=== PATIENT | male | born 1930 | race Caucasian/White ===

== ENCOUNTER 2016-07-01 15:13 | Inpatient (IN) | payer MEDICARE ==
--- NOTE | 2016-07-01 15:44 | ED Physician Chart ---
Chief Complaint/HPI - Patient Information Date Seen:: 07/01/16 Time Seen:: 15:16 Chief Complaint:: Poor oral intake/failure to thrive. History of Present Illness:: Brought in by ambulance from nursing facility for the above reason. Pt is here for evaluation and consideration for gastrostomy tube placement. H & P are limited because pt is not fully cooperative. Info is primarily from review of limited transfer documents. Allergies:: Allergies Allergy/AdvReac Type Severity Reaction Status Date / Time No Known Allergies Allergy Verified 07/01/16 15:29 Vitals:: Vital Signs - 8 hr 07/01/16 15:29 Temp 98.1 F HR 88 RR 17 BP 95/65 O2 Sat % 95 Historian:: Medical Records (from transferring facility.) Family MD/PCP:: Dr. Peng LMP:: N/A Review:: Nurse's Note Reviewed, Transfer documents Reviewed Review of Systems - Review of Systems General/Constitutional: Other (Pt does not cooperate for ROS.) Past Medical History - Past Medical History Past Medical History: HTN, CAD, Asthma/COPD, Arthritis, Dementia, Other (BPH, chronic anemia.) Family History: Other (Pt does not cooperate to provide info on FHx.) Social History: Care Facility, Other (Pt does not cooperate to provide info on SHx.) Employment:: Retired. Surgical History: other (L hip surgery related to L femoral head fx.) Psychiatricy History: Dementia Medication: Reviewed Family Medical History - Family Member Mother Ethnicity: Living Status: Physical Exam - Physical Examination General/Constitutional: Awake, Alert, No distress, Non-toxic appearing Other Gen/Cons comments:: WD cachetic elderly male in NAD. Breathes comfortably, speaks clearly, but is not cooperative. Head: Atraumatic Eyes: Lids, conjuctiva normal, PERRL, EOMI Skin: No lymphadenopathy Other Skin comments:: Good color with slight decrease in turgor. Decubitus ulcers noticed in mid back without signs of infection. See pictures in Nurse Note. ENMT: External ears, nose nl, Nasal exam nl, Oropharynx nl, Tonsils nl Other ENMT comments:: Mucous membrane is slightly dry. Neck: Nontender, Full ROM w/o pain, No JVD, No nuchal rigidity, No bruit, No mass, No stridor Respiratory: Nl effort/Exclusion, Clear to Auscultation, No Wheeze/Rhonchi/Rales Cardio Vascular: RRR, No murmur, gallop, rubs GI: No tenderness/rebounding/guarding, No organomegaly, No hernia, Normal BS's, Nondistended, No mass/bruits, No McBurney tenderness Other GI comments:: Abdomen is soft. : No CVA tenderness Extremities: No edema Other Neuro/Psych comments:: Alert. Spontaneous movements noticed in all 4 extremities. Pt does not cooperate for full neurological exam. Labs/Radiology/EKG Results - Lab Results Results: Laboratory Tests 07/01/16 07/01/16 07/01/16 15:40 15:50 15:50 WBC 14.9 H RBC 3.19 L Hgb 10.5 L Hct 31.0 L MCV 97.2 MCH 33.0 H MCHC Differential 34.0 RDW 14.7 Plt Count 318 MPV 7.7 Neutrophils (Manual) 82 H Lymphocytes 12 L Monocytes 6 Platelet Estimate ADEQUATE Platelet Morphology NORMAL RBC Morph Micro Appear NORMAL PT 14.1 H INR 1.34 PTT (Actin FS) 35.7 Sodium Potassium Chloride Carbon Dioxide Anion Gap BUN Creatinine Est GFR ( Amer) Est GFR (Non-Af Amer) BUN/Creatinine Ratio Glucose Calcium Total Bilirubin AST ALT Alkaline Phosphatase Total Protein Albumin Globulin Albumin/Globulin Ratio Urine Source CATH Urine Color YELLOW Urine Clarity HAZY Urine pH 8.5 Ur Specific [place] 1.015 Urine Protein >300 H Urine Glucose (UA) NEGATIVE Urine Ketones NEGATIVE Urine Blood MODERATE H Urine Nitrate NEGATIVE Urine Bilirubin NEGATIVE Urine Urobilinogen 1.0 Ur Leukocyte Esterase TRACE H Urine RBC >100 H Urine WBC 6-10 H Ur Epithelial Cells FEW Calcium Oxalate Crystal FEW Urine Bacteria FEW 07/01/16 15:50 WBC RBC Hgb Hct MCV MCH MCHC Differential RDW Plt Count MPV Neutrophils (Manual) Lymphocytes Monocytes Platelet Estimate Platelet Morphology RBC Morph Micro Appear PT INR PTT (Actin FS) Sodium 130 L Potassium 4.4 Chloride 107 Carbon Dioxide 24.6 Anion Gap 2.8 L BUN 29 H Creatinine 0.5 L Est GFR ( Amer) TNP Est GFR (Non-Af Amer) TNP BUN/Creatinine Ratio 58.0 Glucose 96 Calcium 8.1 L Total Bilirubin 0.5 AST 25 ALT 13 Alkaline Phosphatase 92 Total Protein 5.6 L Albumin 2.6 L Globulin 3.0 Albumin/Globulin Ratio 0.9 L Urine Source Urine Color Urine Clarity Urine pH Ur Specific [place] Urine Protein Urine Glucose (UA) Urine Ketones Urine Blood Urine Nitrate Urine Bilirubin Urine Urobilinogen Ur Leukocyte Esterase Urine RBC Urine WBC Ur Epithelial Cells Calcium Oxalate Crystal Urine Bacteria - Radiology Results Results: PCXR: Based on my interpretation, poor inspiration, suboptimal study. No definite acute disease. Official report is pending. ED Septic Shock - . Is Septic Shock (SBP<90, OR Lactate>4 mmol\L) present?: No - <6hrs of presentation: Vital Signs: Vital Signs - 8 hr 07/01/16 15:29 Temp 98.1 F HR 88 RR 17 BP 95/65 O2 Sat % 95 Reassessment (Disposition) - Reassessment Reassessment:: 1804 Pt has been repeatedly evaluated. Pt remains stable. No new findings. CXR and remaining lab results just became available. Dr. Limon is to be contacted. 1922 Pt was given Dilaudid 0.5 mg IVP for his chronic pain. Pt did not tolerate oral medication and Toradol is not to be given because of his renal insufficiency. Pt's BP decreased slightly. Pt is thus given normal saline 500 ml IV bolus. 1939 Pt's condition improved and is stable BP 100/60. Pt is comfortable. No new findings. 2027 Pt was discussed with Dr. Limon with pertinent H & P, CXR and lab findings reviewed. Pt is to be admitted to [facility] under his care. Reassessment Condition:: Improved - Diagnosis Diagnosis:: Failure to thrive with hypoalbuminemia. Renal insufficiency with dehydration. Stable. Chronic anemia. Stable ? recent h/o pneumonia, on antibiotic therapy. Stable. 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 Stable. - Patient Disposition Admitted to:: Telemetry Admitting Medical Physician:: Renato Limon Time:: 20:30 Condition at Disposition:: Stable, Improved
[2016-07-01] MEDS ORDERED: Sodium Chloride 0.9% 1,000 ML IV ONE (15:45)
[2016-07-01 16:06] LABS: HEMOGLOBIN 10.5 gm/dL (12.6-17.4); MEAN CELL VOLUME 97.2 fl (80-99); MEAN PLATELET VOLUME 7.7 fl; PLATELET COUNT 318 Th/cmm (150-400); RED BLOOD COUNT 3.19 Mil/cmm (3.80-5.80); RED CELL DISTRIBUTION WIDTH 14.7 % (11.5-20.0)
[2016-07-01 16:08] LABS: WHITE BLOOD COUNT 14.9 Th/cmm (4.8-10.8)
[2016-07-01 16:20] LABS: INR 1.34 (0.5-1.4); PROTHROMBIN TIME (TEST) 14.1 SECONDS (9.5-11.5)
[2016-07-01 16:23] LABS: ALB/GLOB RATIO 0.9 (1.0-1.8); ALKALINE PHOSPHATASE 92 U/L (34-104); ANION GAP 2.8 (7.0-16.0); BILIRUBIN,TOTAL 0.5 mg/dL (0.3-1.0); BUN - UREA NITROGEN 29 mg/dL (7-25); CALCIUM SERUM 8.1 mg/dL (8.6-10.3); CARBON DIOXIDE 24.6 mEq/L (21.0-31.0); CHLORIDE 107 mEq/L (98-107); CREATININE - SERUM 0.5 mg/dL (0.7-1.3); GLUCOSE 96 mg/dL (70-105); POTASSIUM SERUM 4.4 mEq/L (3.5-5.1); SGOT 25 U/L (13-39); SGPT/ALT 13 U/L (7-52); SODIUM SERUM 130 mEq/L (136-145)
[2016-07-01 16:48] LABS: NEUTROPHILS 82 % (40-80); PLATELET ESTIMATE ADEQUATE (NORMAL); PLATELET MORPHOLOGY NORMAL (NORMAL); TOTAL CELLS COUNTED 100
[2016-07-01 16:53] LABS: URINE BILIRUBIN NEGATIVE (NEGATIVE); URINE BLOOD MODERATE (NEGATIVE); URINE COLOR YELLOW; URINE GLUCOSE (UA) NEGATIVE (NEGATIVE); URINE KETONE NEGATIVE (NEGATIVE); URINE PH 8.5; URINE PROTEIN >300 mg/dL (NEGATIVE)
[2016-07-01 16:54] LABS: URINE BACTERIA FEW /hpf (NONE SEEN); URINE CALCIUM OXALATE CRYSTALS FEW /hpf; URINE EPITHELIAL CELLS FEW /lpf (FEW); URINE RBC >100 /hpf (0-5)
[2016-07-01] MEDS ORDERED: HYDROmorphone 1 mg/mL 1mL Syr IVP STA (18:55)
[2016-07-01] MEDS ORDERED: HYDROmorphone 1 mg/mL 1mL Syr ONE (18:56)
[2016-07-01] MEDS ORDERED: Sodium Chloride 0.9% 500 ML IV ONE (19:19)
[2016-07-01] MEDS ORDERED: cefTRIAXone 1 GM in Sodium Chloride 0.9% 50 ML IV ONE (20:47)
--- NOTE | 2016-07-01 22:06 | Admit Criteria Form ---
Admit Criteria Forms - Admit Criteria Diagnosis: ANEMIA, IRON DEFICIENCY OR UNSPECIFIED Clinical Indications for Inpatient Care (Place 'X' for any and all applicable criteria): Admission is indicated for ANY ONE of the following(1)(2)(3)(4)(5)(6)(7): [X] I. Inpatient admission required rather than observation care (Also use Anemia, Iron Deficiency or Unspecified: Observation Care guideline as appropriate) because of ANY ONE of the following: [] a) Hemodynamic instability that is severe or persistent [] b) Active bleeding that cannot be rapidly controlled [] c) CVS symptoms (i.e., dyspnea, chest pain, heart failure) that are severe or persistent [] d) Neurologic symptoms (i.e., cognitive impairment, recurrent syncope or near syncope) that are severe or persistent [] e) Cardiac arrhythmias of immediate concern [] f) Acute peripheral ischemia (e.g., pulseless, cool, mottled, or cyanotic extremity) [] g) High-risk low platelet count [] h) Acute renal failure [] i) Ongoing transfusion for blood loss (greater than 2 units) [] j) IV fluid to replace significant ongoing (eg, >24 hours) losses (> 3 L/m2 per day) [] k) Pulmonary artery catheter monitoring [] l) Supplemental oxygen or respiratory treatments for over 24 hours that are performable only in acute inpatient setting [] m) Immediate inpatient surgery [X] n) Other condition, treatment or monitoring requiring inpatient admission [] II Active massive hemorrhage [] III. Active hemolysis with rapidly progressive anemia [A](6) Extended stay beyond goal length of stay may be needed for (17)(18) []a) Diagnosed cause of anemia requiring longer hospitalization (eg, active GI bleeding, immune hemolysis requiring electrophoresis, complications of malignancy requiring acute care []b) Continued emergent anemia indicators (23) []c) Transfusion reactions []d) Associated leukopenia or thrombocytopenia needing inpatient care []e) Active comorbidities (eg, renal failure, heart failure) The original [facility] [employer] content created by [employer] has been revised. The portions of the content which have been revised are identified through the use of italic text or in bold. [employer] has neither reviewed nor approved the modified material. All other unmodified content is copyright [employer]. Please see references footnoted in the original [facility] edition 2016 Admit Criteria Met?: Yes
[2016-07-01] MEDS: D5-0.45NS 1,000 ML IV SCH (22:10)
[2016-07-01] MEDS: HYDROmorphone 1 mg/mL 1mL Syr IVP PRN (23:15)
[2016-07-02 02:01] VITALS: BP 115/82
[2016-07-02] MEDS: HYDROmorphone 1 mg/mL 1mL Syr IVP PRN ×2 (03:09→09:18)
[2016-07-02 06:53] LABS: HEMATOCRIT 27.9 % (39.0-49.0); HEMOGLOBIN 9.5 gm/dL (12.6-17.4); MEAN CORPUSCULAR HEMOGLOBIN 33.1 pg (27.0-31.0); MEAN CORPUSCULAR HGB CONC 34.1 pg (28.0-36.0); MEAN PLATELET VOLUME 8.5 fl; PLATELET COUNT 303 Th/cmm (150-400); RED BLOOD COUNT 2.87 Mil/cmm (3.80-5.80); RED CELL DISTRIBUTION WIDTH 14.9 % (11.5-20.0)
[2016-07-02 07:07] LABS: WHITE BLOOD COUNT 14.5 Th/cmm (4.8-10.8)
[2016-07-02 07:10] LABS: ALB/GLOB RATIO 0.9 (1.0-1.8); ALKALINE PHOSPHATASE 80 U/L (34-104); ANION GAP 3.4 (7.0-16.0); BILIRUBIN,TOTAL 0.4 mg/dL (0.3-1.0); BUN - UREA NITROGEN 19 mg/dL (7-25); BUN/CREATININE RATIO 47.5; CALCIUM SERUM 7.7 mg/dL (8.6-10.3); CARBON DIOXIDE 27.5 mEq/L (21.0-31.0); CHLORIDE 108 mEq/L (98-107); CHOLESTEROL 103 mg/dL (<200); CREATININE - SERUM 0.4 mg/dL (0.7-1.3); GLUCOSE 102 mg/dL (70-105); MAGNESIUM 1.7 mg/dL (1.9-2.7); POTASSIUM SERUM 3.9 mEq/L (3.5-5.1); SGOT 21 U/L (13-39); SGPT/ALT 13 U/L (7-52); SODIUM SERUM 135 mEq/L (136-145); TRIGLYCERIDES 90 mg/dL (<150)
[2016-07-02 07:11] LABS: INR 1.15 (0.5-1.4); PROTHROMBIN TIME (TEST) 12.1 SECONDS (9.5-11.5)
--- NOTE | 2016-07-02 08:01 | Diagnostic Imaging Report ---
Portable chest x-ray HISTORY: Shortness of breath The heart size appears generous. There is a poor inspiration. Accentuation of the interstitial lung markings. However, no acute focal pulmonary processes are seen. Atherosclerotic calcification seen within a tortuous aorta. IMPRESSION: 1. Allowing for a poor inspiration, no acute focal pulmonary processes 2. Generous heart size with atherosclerotic vascular changes
[2016-07-02] MEDS: Venelex 60gm Tube TP SCH (08:57)
[2016-07-02] MEDS ORDERED: [UNRECOGNIZED DRUG - OTHER] TP SCH (09:00)
[2016-07-02] MEDS ORDERED: COLLAGENASE APPL TP SCH (09:00)
[2016-07-02] MEDS ORDERED: Non-Formulary Item 1 EA (Calcium Alginate [Kendall] 1 EACH) TP SCH (09:00)
[2016-07-02 10:17] LABS: NEUTROPHILS 86 % (40-80); PLATELET ESTIMATE ADEQUATE (NORMAL); PLATELET MORPHOLOGY NORMAL (NORMAL); TOTAL CELLS COUNTED 100
--- NOTE | 2016-07-02 12:02 | History & Physical ---
CHIEF COMPLAINT: Failure to thrive, poor p.o. intake. HISTORY OF PRESENT ILLNESS: This is an 85-year-old gentleman with history of advanced dementia, hypertension, CAD, asthma/COPD, osteoarthritis, BPH, chronic anemia, who was transferred from [facility] given poor p.o. intake and failure to thrive. The patient is basically aphasic, not able to provide any history and at times is combative per nursing staff. No other history available at this time. Pertinent findings on admission include a white count of 14.9, sodium of 130, BUN of 29, albumin level of 2.6 and a UA consistent with a UTI. PAST MEDICAL HISTORY: As noted above, atrial fibrillation. PAST SURGICAL HISTORY: Unknown. FAMILY HISTORY: Unknown, but likely noncontributory. SOCIAL HISTORY: He lives at [facility]. There is no current history of alcohol consumption or cigarette smoking. ALLERGIES: NKDA. OUTPATIENT MEDICATIONS: Amiodarone 200 mg every day, Xarelto 10 mg every day, zinc 220 mg every day, ascorbic acid 500 mg b.i.d., aspirin 81 every day, iron sulfate 325 b.i.d., multivitamins every day, [place] 5/325 q. 8 hours p.r.n. for severe pain, Flomax 0.8 every day, melatonin 3 mg at bedtime, albuterol nebulizer q. 6 hours while awake p.r.n. for SOB, Nasonex one spray per nostril every other day. REVIEW OF SYSTEMS: Unable to be done given patient's condition. PHYSICAL EXAMINATION: VITAL SIGNS: Temperature 98.7, T-max is 100, pulse 87, BP 107/56, respirations 19, satting 98% on 2 liters. GENERAL: He is a well-developed, thin, elderly gentleman currently in a position, not able to answer questions. HEENT: He is normocephalic. NECK: There is no JVD or LAD. CARDIAC: regular rate and rhythm with no audible murmurs. LUNGS: Decreased at the bases, but clear to auscultation with no noticeable rhonchi or wheezing noted at this time. EXTREMITIES: On lower extremities, there is no edema. On the coccyx, there is an ulcer, round with purulent discharge noted with surrounding erythema. It is probably about 3-4 cm round in circumference. On the right heel, there is a stage I decubitus ulcer. On the left, there is very extensive stage likely III with necrotic tissue ulcer. NEUROLOGIC: Difficult to assess given that the patient does not follow commands. LABORATORY DATA: On admission, white count 14.9, H and H 02/05, platelet count of 318. INR is 1.34. Sodium 130, potassium 4.4, chloride 107, BUN 29, creatinine 0.5, calcium 8.1, glucose 96. Albumin 2.6, total protein 5.6. UA shows positive for protein, moderate blood, trace leukocyte esterase, over 100 rbc's, 6-10 wbc's. DIAGNOSTICS: Chest x-ray: poor inspiration. No focal pulmonary processes. There is generous heart size with atherosclerotic vascular changes. IMPRESSION: 1. Poor p.o. intake, failure to thrive, likely secondary to advanced dementia. Other differentials include infectious etiology, given his UA findings and his infected decubitus ulcers. 2. Coccygeal infected decubitus ulcer. 3. Urinary tract infection. 4. Leukocytosis. 5. History of atrial fibrillation, rate control. 6. History of asthma/chronic obstructive pulmonary disease, appears to be clinically stable. 7. Hyponatremia. 8. Azotemia/dehydration. 9. History of anemia, likely of chronic disease. 10. History of osteoarthritis. 11. History of hypertension. 12. Coronary artery disease. PLAN: The patient has been admitted to the medical/surgical floor for supportive care and treatment. The patient has been placed on D5 half NS at 60 mL per hour and has been started on vancomycin and Rocephin. An ST eval has been ordered, but he will be kept on his current medications given his extensive medical history. A dietary eval will also be asked for and a GI eval for possible PEG placement has also been written. I will ask for General Surgical eval for possible debridement of his current decubitus ulcers. Daily labs will be done. JOB# [id number] NINA
[2016-07-02] MEDS ORDERED: ceFAZolin 1 GM in Sodium Chloride 0.9% 50 ML IV ONE (14:02)
--- NOTE | 2016-07-02 14:57 | General Progress Note ---
Subjective - Review of Systems Events since last encounter: 07/02/16 has large ulcer left posterior chest and left heel, duration? patient not able to give information Plar : excisional debridement Objective - Results Result Diagrams: 07/02/16 06:00 07/02/16 06:00 Recent Labs: Laboratory Last Values WBC 14.5 Th/cmm (4.8-10.8) H 07/02/16 06:00 RBC 2.87 Mil/cmm (3.80-5.80) L 07/02/16 06:00 Hgb 9.5 gm/dL (12.6-17.4) L 07/02/16 06:00 Hct 27.9 % (39.0-49.0) L 07/02/16 06:00 MCV 97.0 fl (80-99) 07/02/16 06:00 MCH 33.1 pg (27.0-31.0) H 07/02/16 06:00 MCHC Differential 34.1 pg (28.0-36.0) 07/02/16 06:00 RDW 14.9 % (11.5-20.0) 07/02/16 06:00 Plt Count 303 Th/cmm (150-400) 07/02/16 06:00 MPV 8.5 fl 07/02/16 06:00 Neutrophils (Manual) 86 % (40-80) H 07/02/16 06:00 Lymphocytes 7 % (20-50) L 07/02/16 06:00 Monocytes 7 % (2-10) 07/02/16 06:00 Platelet Estimate ADEQUATE (NORMAL) 07/02/16 06:00 Platelet Morphology NORMAL (NORMAL) 07/02/16 06:00 RBC Morph Micro Appear NORMAL (NORMAL) 07/02/16 06:00 ESR 35 mm/hr (0-20) H 07/02/16 06:00 PT 12.1 SECONDS (9.5-11.5) H 07/02/16 06:00 INR 1.15 (0.5-1.4) 07/02/16 06:00 PTT (Actin FS) 31.5 SECONDS (26.0-38.0) 07/02/16 06:00 Sodium 135 mEq/L (136-145) L 07/02/16 06:00 Potassium 3.9 mEq/L (3.5-5.1) 07/02/16 06:00 Chloride 108 mEq/L (98-107) H 07/02/16 06:00 Carbon Dioxide 27.5 mEq/L (21.0-31.0) 07/02/16 06:00 Anion Gap 3.4 (7.0-16.0) L 07/02/16 06:00 BUN 19 mg/dL (7-25) 07/02/16 06:00 Creatinine 0.4 mg/dL (0.7-1.3) L 07/02/16 06:00 Est GFR ( Amer) TNP 07/02/16 06:00 Est GFR (Non-Af Amer) TNP 07/02/16 06:00 BUN/Creatinine Ratio 47.5 07/02/16 06:00 Glucose 102 mg/dL (70-105) 07/02/16 06:00 Calcium 7.7 mg/dL (8.6-10.3) L 07/02/16 06:00 Magnesium 1.7 mg/dL (1.9-2.7) L 07/02/16 06:00 Total Bilirubin 0.4 mg/dL (0.3-1.0) 07/02/16 06:00 AST 21 U/L (13-39) 07/02/16 06:00 ALT 13 U/L (7-52) 07/02/16 06:00 Alkaline Phosphatase 80 U/L (34-104) 07/02/16 06:00 C-Reactive Protein 4.0 mg/dL (0.0-0.9) H 07/02/16 06:00 Total Protein 5.0 gm/dL (6.0-8.3) L 07/02/16 06:00 Albumin 2.3 gm/dL (4.2-5.5) L 07/02/16 06:00 Globulin 2.7 gm/dL 07/02/16 06:00 Albumin/Globulin Ratio 0.9 (1.0-1.8) L 07/02/16 06:00 Triglycerides 90 mg/dL (<150) 07/02/16 06:00 Cholesterol 103 mg/dL (<200) 07/02/16 06:00 LDL Cholesterol Direct 55 mg/dL (75-193) L 07/02/16 06:00 HDL Cholesterol 32 mg/dL (23-92) 07/02/16 06:00 TSH 2.42 uIU/ml (0.34-5.60) 07/02/16 06:00 Urine Source CATH 07/01/16 15:40 Urine Color YELLOW 07/01/16 15:40 Urine Clarity HAZY (CLEAR) 07/01/16 15:40 Urine pH 8.5 07/01/16 15:40 Ur Specific [place] 1.015 (1.005-1.030) 07/01/16 15:40 Urine Protein >300 mg/dL (NEGATIVE) H 07/01/16 15:40 Urine Glucose (UA) NEGATIVE mg/dL (NEGATIVE) 07/01/16 15:40 Urine Ketones NEGATIVE mg/dL (NEGATIVE) 07/01/16 15:40 Urine Blood MODERATE (NEGATIVE) H 07/01/16 15:40 Urine Nitrate NEGATIVE (NEGATIVE) 07/01/16 15:40 Urine Bilirubin NEGATIVE (NEGATIVE) 07/01/16 15:40 Urine Urobilinogen 1.0 E.U./dL (0.2 - 1.0) 07/01/16 15:40 Ur Leukocyte Esterase TRACE (NEGATIVE) H 07/01/16 15:40 Urine RBC >100 /hpf (0-5) H 07/01/16 15:40 Urine WBC 6-10 /hpf (0-5) H 07/01/16 15:40 Ur Epithelial Cells FEW /lpf (FEW) 07/01/16 15:40 Calcium Oxalate Crystal FEW /hpf 07/01/16 15:40 Urine Bacteria FEW /hpf (NONE SEEN) 07/01/16 15:40 - Physical Exam Vitals and I&O: Vital Signs Temp 97.3 F 07/02/16 08:00 Pulse 86 07/02/16 08:00 Resp 14 07/02/16 08:00 BP 97/60 07/02/16 08:00 Pulse Ox 88 07/02/16 08:00 Intake & Output 07/01/16 07/02/16 07/02/16 18:59 06:59 18:59 Output Total 150 Balance -150 Weight (lbs) 42.048 kg Output: Urine 150 Other: Stool Characteristics Soft Active Medications: Current Medications Acetaminophen (Tylenol) 650 mg PO Q6H PRN PRN Reason: MILD PAIN OR ELEVATED TEMP Albuterol/Ipratropium (Duoneb Neb) 3 ml HHN Q4H PRN PRN Reason: Wheezing Stop: 08/30/16 20:49 Amiodarone HCl (Cordarone) 200 mg PO DAILY [facility] Stop: 08/31/16 08:59 Last Admin: 07/02/16 08:57 Dose: Not Given Bacitracin (Baciquent) 1 appl TP DAILY [facility] Stop: 08/31/16 08:59 Hydromorphone HCl (Dilaudid) 0.5 mg IVP Q4H PRN PRN Reason: Pain (Severe) Stop: 08/30/16 20:59 Last Admin: 07/02/16 09:18 Dose: 0.5 mg Dextrose/Sodium Chloride (D5-0.45ns) 1,000 mls @ 60 mls/hr IV .[id number] [facility] Stop: 08/30/16 20:41 Last Admin: 07/01/16 22:10 Dose: 60 mls/hr Miscellaneous (Calcium Alginate [Mit[place]]) 1 each TP DAILY [facility] Stop: 08/31/16 08:59 Miscellaneous (Tab Ointment) 1 unit TP DAILY [facility] Stop: 08/31/16 08:59 Rivaroxaban (Xarelto) 10 mg PO DAILY [facility] Stop: 08/31/16 08:59 Last Admin: 07/02/16 08:57 Dose: Not Given Assessment/Plan - Problem List Patient Problems: All Active Problems FAILURE TO THRIVE, G-TUBE EVAL (Acute) Nutritional Asmnt/Malnutr-PDOC - Dietary Evaluation Malnutrition Findings (Please click <Entered> for more info): Nutritional Asmnt/Malnutrition Start: 07/02/16 10: 46 Text: Status: Complete Freq: Document 07/02/16 10:46 GSUN (Rec: 07/02/16 11:13 GSUN [id number]) Nutritional Asmnt/Malnutrition Patient General Information Nutritional Screening High Risk Screening Diagnosis ER: FTT, renal insufficiency dehydration, chronic decubitus ulcers mid back Pertinent Medical Hx/Surgical Hx ER: HTN, CAD, asthma/COPD, arthritis, dementia, BPH, chronic anemia Subjective Information 85 year old male from SNF. Per ER: poor PO and FTT, admitted for evaluation for g tube placement. 07/02 swallow eval: strict NPO, alternative methods of nutrition. Pt with eyes opened, did not make eye contact with RD, both hands with mittens on. Pt appeared thin overall, muscle/fat wasting to temporals, all 4 extremities, clavicles noted. 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 Estimated Nutritional Goals Calories/Kcals/Kg IBW 124lb/56.4kg Kcals Calculated 1410-1692kcal (25-30kcal/kg) Protein g/kg: IBW Protein Calculated 56-78g (1-1.4g/kg) Fluid: ml 1410-1692ml (1ml/kcal) Nutritional Problem 1. Problem Problem Difficulty swallowing related to Etiology failed swallow evaluation aeb Signs/Symptoms: ST recommend strict NPO, alternative methods of nutrition Intervention/Recommendation Comments 1. Recommend Fibersource at goal rate 50ml/hr x 24hrs, providing 1200ml total volume, 1440kcal, 65g protein, 940ml free water. Begin at 25ml/hr for first 24 hrs, monitor tolerance, increase rate by 10ml/hr q6hrs until goal rate of 50ml/hr. 2. Recommend 120ml water flush q6hrs if IV discontinued. Expected Outcomes/Goals Expected Outcomes/Goals 1. PT to meet 100% estimated nutritional needs on tube feeding with tolerance.
--- NOTE | 2016-07-02 15:01 | General Progress Note ---
Subjective - Review of Systems Events since last encounter: talked to daughter who was not aware about heel ulcer and back ulcer Objective - Results Result Diagrams: 07/02/16 06:00 07/02/16 06:00 Recent Labs: Laboratory Last Values WBC 14.5 Th/cmm (4.8-10.8) H 07/02/16 06:00 RBC 2.87 Mil/cmm (3.80-5.80) L 07/02/16 06:00 Hgb 9.5 gm/dL (12.6-17.4) L 07/02/16 06:00 Hct 27.9 % (39.0-49.0) L 07/02/16 06:00 MCV 97.0 fl (80-99) 07/02/16 06:00 MCH 33.1 pg (27.0-31.0) H 07/02/16 06:00 MCHC Differential 34.1 pg (28.0-36.0) 07/02/16 06:00 RDW 14.9 % (11.5-20.0) 07/02/16 06:00 Plt Count 303 Th/cmm (150-400) 07/02/16 06:00 MPV 8.5 fl 07/02/16 06:00 Neutrophils (Manual) 86 % (40-80) H 07/02/16 06:00 Lymphocytes 7 % (20-50) L 07/02/16 06:00 Monocytes 7 % (2-10) 07/02/16 06:00 Platelet Estimate ADEQUATE (NORMAL) 07/02/16 06:00 Platelet Morphology NORMAL (NORMAL) 07/02/16 06:00 RBC Morph Micro Appear NORMAL (NORMAL) 07/02/16 06:00 ESR 35 mm/hr (0-20) H 07/02/16 06:00 PT 12.1 SECONDS (9.5-11.5) H 07/02/16 06:00 INR 1.15 (0.5-1.4) 07/02/16 06:00 PTT (Actin FS) 31.5 SECONDS (26.0-38.0) 07/02/16 06:00 Sodium 135 mEq/L (136-145) L 07/02/16 06:00 Potassium 3.9 mEq/L (3.5-5.1) 07/02/16 06:00 Chloride 108 mEq/L (98-107) H 07/02/16 06:00 Carbon Dioxide 27.5 mEq/L (21.0-31.0) 07/02/16 06:00 Anion Gap 3.4 (7.0-16.0) L 07/02/16 06:00 BUN 19 mg/dL (7-25) 07/02/16 06:00 Creatinine 0.4 mg/dL (0.7-1.3) L 07/02/16 06:00 Est GFR ( Amer) TNP 07/02/16 06:00 Est GFR (Non-Af Amer) TNP 07/02/16 06:00 BUN/Creatinine Ratio 47.5 07/02/16 06:00 Glucose 102 mg/dL (70-105) 07/02/16 06:00 Calcium 7.7 mg/dL (8.6-10.3) L 07/02/16 06:00 Magnesium 1.7 mg/dL (1.9-2.7) L 07/02/16 06:00 Total Bilirubin 0.4 mg/dL (0.3-1.0) 07/02/16 06:00 AST 21 U/L (13-39) 07/02/16 06:00 ALT 13 U/L (7-52) 07/02/16 06:00 Alkaline Phosphatase 80 U/L (34-104) 07/02/16 06:00 C-Reactive Protein 4.0 mg/dL (0.0-0.9) H 07/02/16 06:00 Total Protein 5.0 gm/dL (6.0-8.3) L 07/02/16 06:00 Albumin 2.3 gm/dL (4.2-5.5) L 07/02/16 06:00 Globulin 2.7 gm/dL 07/02/16 06:00 Albumin/Globulin Ratio 0.9 (1.0-1.8) L 07/02/16 06:00 Triglycerides 90 mg/dL (<150) 07/02/16 06:00 Cholesterol 103 mg/dL (<200) 07/02/16 06:00 LDL Cholesterol Direct 55 mg/dL (75-193) L 07/02/16 06:00 HDL Cholesterol 32 mg/dL (23-92) 07/02/16 06:00 TSH 2.42 uIU/ml (0.34-5.60) 07/02/16 06:00 Urine Source CATH 07/01/16 15:40 Urine Color YELLOW 07/01/16 15:40 Urine Clarity HAZY (CLEAR) 07/01/16 15:40 Urine pH 8.5 07/01/16 15:40 Ur Specific [place] 1.015 (1.005-1.030) 07/01/16 15:40 Urine Protein >300 mg/dL (NEGATIVE) H 07/01/16 15:40 Urine Glucose (UA) NEGATIVE mg/dL (NEGATIVE) 07/01/16 15:40 Urine Ketones NEGATIVE mg/dL (NEGATIVE) 07/01/16 15:40 Urine Blood MODERATE (NEGATIVE) H 07/01/16 15:40 Urine Nitrate NEGATIVE (NEGATIVE) 07/01/16 15:40 Urine Bilirubin NEGATIVE (NEGATIVE) 07/01/16 15:40 Urine Urobilinogen 1.0 E.U./dL (0.2 - 1.0) 07/01/16 15:40 Ur Leukocyte Esterase TRACE (NEGATIVE) H 07/01/16 15:40 Urine RBC >100 /hpf (0-5) H 07/01/16 15:40 Urine WBC 6-10 /hpf (0-5) H 07/01/16 15:40 Ur Epithelial Cells FEW /lpf (FEW) 07/01/16 15:40 Calcium Oxalate Crystal FEW /hpf 07/01/16 15:40 Urine Bacteria FEW /hpf (NONE SEEN) 07/01/16 15:40 - Physical Exam Vitals and I&O: Vital Signs Temp 97.3 F 07/02/16 08:00 Pulse 86 07/02/16 08:00 Resp 14 07/02/16 08:00 BP 97/60 07/02/16 08:00 Pulse Ox 88 07/02/16 08:00 Intake & Output 07/01/16 07/02/16 07/02/16 18:59 06:59 18:59 Output Total 150 Balance -150 Weight (lbs) 42.048 kg Output: Urine 150 Other: Stool Characteristics Soft Active Medications: Current Medications Acetaminophen (Tylenol) 650 mg PO Q6H PRN PRN Reason: MILD PAIN OR ELEVATED TEMP Albuterol/Ipratropium (Duoneb Neb) 3 ml HHN Q4H PRN PRN Reason: Wheezing Stop: 08/30/16 20:49 Amiodarone HCl (Cordarone) 200 mg PO DAILY [facility] Stop: 08/31/16 08:59 Last Admin: 07/02/16 08:57 Dose: Not Given Bacitracin (Baciquent) 1 appl TP DAILY [facility] Stop: 08/31/16 08:59 Hydromorphone HCl (Dilaudid) 0.5 mg IVP Q4H PRN PRN Reason: Pain (Severe) Stop: 08/30/16 20:59 Last Admin: 07/02/16 09:18 Dose: 0.5 mg Dextrose/Sodium Chloride (D5-0.45ns) 1,000 mls @ 60 mls/hr IV .[id number] [facility] Stop: 08/30/16 20:41 Last Admin: 07/01/16 22:10 Dose: 60 mls/hr Miscellaneous (Calcium Alginate [Mitchel]) 1 each TP DAILY [facility] Stop: 08/31/16 08:59 Miscellaneous (Tab Ointment) 1 unit TP DAILY [facility] Stop: 08/31/16 08:59 Rivaroxaban (Xarelto) 10 mg PO DAILY [facility] Stop: 08/31/16 08:59 Last Admin: 07/02/16 08:57 Dose: Not Given Assessment/Plan - Problem List Patient Problems: All Active Problems FAILURE TO THRIVE, G-TUBE EVAL (Acute) Nutritional Asmnt/Malnutr-PDOC - Dietary Evaluation Malnutrition Findings (Please click <Entered> for more info): Nutritional Asmnt/Malnutrition Start: 07/02/16 10: 46 Text: Status: Complete Freq: Document 07/02/16 10:46 GSUN (Rec: 07/02/16 11:13 GSUN [email or web address]) Nutritional Asmnt/Malnutrition Patient General Information Nutritional Screening High Risk Screening Diagnosis ER: FTT, renal insufficiency dehydration, chronic decubitus ulcers mid back Pertinent Medical Hx/Surgical Hx ER: HTN, CAD, asthma/COPD, arthritis, dementia, BPH, chronic anemia Subjective Information 85 year old male from SNF. Per ER: poor PO and FTT, admitted for evaluation for g tube placement. 07/02 swallow eval: strict NPO, alternative methods of nutrition. Pt with eyes opened, did not make eye contact with RD, both hands with mittens on. Pt appeared thin overall, muscle/fat wasting to temporals, all 4 extremities, clavicles noted. 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 Estimated Nutritional Goals Calories/Kcals/Kg IBW 124lb/56.4kg Kcals Calculated 1410-1692kcal (25-30kcal/kg) Protein g/kg: IBW Protein Calculated 56-78g (1-1.4g/kg) Fluid: ml 1410-1692ml (1ml/kcal) Nutritional Problem 1. Problem Problem Difficulty swallowing related to Etiology failed swallow evaluation aeb Signs/Symptoms: ST recommend strict NPO, alternative methods of nutrition Intervention/Recommendation Comments 1. Recommend Fibersource at goal rate 50ml/hr x 24hrs, providing 1200ml total volume, 1440kcal, 65g protein, 940ml free water. Begin at 25ml/hr for first 24 hrs, monitor tolerance, increase rate by 10ml/hr q6hrs until goal rate of 50ml/hr. 2. Recommend 120ml water flush q6hrs if IV discontinued. Expected Outcomes/Goals Expected Outcomes/Goals 1. PT to meet 100% estimated nutritional needs on tube feeding with tolerance.
[2016-07-02] MEDS: D5-0.45NS 1,000 ML IV SCH (21:25)
--- NOTE | 2016-07-03 04:20 | Consultation ---
INPATIENT GASTROINTESTINAL CONSULTATION REFERRING PHYSICIAN: Dr. Limon. REASON FOR CONSULTATION: Dysphagia. HISTORY OF PRESENT ILLNESS: An 85-year-old male with advanced dementia, poor historian, unable to give any meaningful history. Apparently, he failed swallow evaluation, they are asking us for consideration of feeding tube. PAST MEDICAL HISTORY: Dementia, hypertension, coronary artery disease, COPD, osteoarthritis, asthma, BPH, anemia, and atrial fibrillation. PAST SURGICAL HISTORY: None to the abdomen recently. FAMILY HISTORY: Noncontributory. SOCIAL HISTORY: Resident of skilled facility. ALLERGIES: None. CURRENT MEDICATIONS: Tylenol, Cordarone, bacitracin, Dilaudid, and Xarelto. REVIEW OF SYSTEMS: Unobtainable. PHYSICAL EXAMINATION: VITAL SIGNS: Temperature 98.7, breathing 19, pulse of 87, blood pressure is 107/56, satting 98%. GENERAL: In no apparent distress. EYES: Anicteric, normal conjunctivae. HEENT: Normocephalic, atraumatic, moist mucous membranes. NECK: Soft, supple. CHEST: Clear. No effort. CARDIOVASCULAR: Regular rate and rhythm. ABDOMEN: Soft, nontender, nondistended. SKIN: Warm and dry. LABORATORY DATA: Show white count of 14.5, hemoglobin 9.5, platelets of 303. INR is 1.15. LFTs within normal limits. IMPRESSION: This is an 85-year-old male with anorexia, dysphagia, failure to thrive, will likely need an enteral feeding tube, family agrees. PLAN: 1. PEG to be done. 2. Hold Xarelto. 3. Check coags. 4. We will need antibiotics before PEG. Thank you for allowing me to participate. Please call me if you have any questions. JOB# [id number]
[2016-07-03] MEDS ORDERED: CEFAZOLIN IV ONE (06:15)
[2016-07-03] MEDS ORDERED: ceFAZolin 1 GM in Sodium Chloride 0.9% 100 ML IV ONE (06:15)
[2016-07-03] MEDS ORDERED: NS 0.9% IV ONE (06:15)
[2016-07-03 06:56] LABS: INR 1.19 (0.5-1.4); PROTHROMBIN TIME (TEST) 12.5 SECONDS (9.5-11.5)
[2016-07-03 06:59] LABS: BUN - UREA NITROGEN 15 mg/dL (7-25); BUN/CREATININE RATIO 37.5; CALCIUM SERUM 8.1 mg/dL (8.6-10.3); CARBON DIOXIDE 24.2 mEq/L (21.0-31.0); CHLORIDE 109 mEq/L (98-107); CREATININE - SERUM 0.4 mg/dL (0.7-1.3); GLUCOSE 98 mg/dL (70-105); MAGNESIUM 1.7 mg/dL (1.9-2.7); SODIUM SERUM 133 mEq/L (136-145)
[2016-07-03 07:15] LABS: ANION GAP 2.8 (7.0-16.0)
[2016-07-03 07:19] LABS: HEMOGLOBIN 10.8 gm/dL (12.6-17.4); MEAN CELL VOLUME 96.1 fl (80-99); MEAN CORPUSCULAR HEMOGLOBIN 33.2 pg (27.0-31.0); MEAN CORPUSCULAR HGB CONC 34.5 pg (28.0-36.0); MEAN PLATELET VOLUME 8.4 fl; PLATELET COUNT 349 Th/cmm (150-400); RED BLOOD COUNT 3.25 Mil/cmm (3.80-5.80); RED CELL DISTRIBUTION WIDTH 14.2 % (11.5-20.0)
[2016-07-03] MEDS ORDERED: Midazolam 1mg/ml 2 ml vial IV ONE (07:46)
[2016-07-03 08:05] LABS: HEMATOCRIT 31.2 % (39.0-49.0); WHITE BLOOD COUNT 18.1 Th/cmm (4.8-10.8)
[2016-07-03] MEDS ORDERED: Meperidine 25 mg/mL 1mL Syr IVP PRN (08:08)
[2016-07-03] MEDS ORDERED: Venelex 60gm Tube TP ONE (08:11)
[2016-07-03] MEDS ORDERED: Lactated Ringer 1,000 ML IV SCH (08:15)
[2016-07-03] MEDS: Venelex 60gm Tube TP SCH (08:24)
[2016-07-03] MEDS ORDERED: Venelex 60gm Tube TP SCH (09:00)
[2016-07-03] MEDS ORDERED: Mag Sulfate 2gm/50mL Premix 2 GM/50 ML BAG IV ONE (09:06)
[2016-07-03] MEDS ORDERED: cefTRIAXone 1 GM in Sodium Chloride 0.9% 50 ML IV SCH (09:15)
--- NOTE | 2016-07-03 09:32 | Consultation ---
REFERRING PHYSICIAN: Dr. Limon. REASON FOR CONSULTATION: Decubitus ulcers. Thank you for referring this patient to me. This is an 85-year-old male with a history of advanced dementia, hypertension, CAD, asthma, osteoarthritis, BPH, chronic anemia, transferred from the residential. He has a large decubitus ulcer along the spine about the level of T11-T12. He has also a left heel decubitus ulcer. The patient is asthenic and no information is available from him. The daughter was called over the phone and was not aware of the ulcers present. He is coming in to sign the consent for debridement of the decubitus ulcer along the spine in the back and left heel. GI evaluation was done by Dr. Hallman for dysphagia. LABORATORY STUDIES: Shows WBC of 14,500, hemoglobin of 9.5, platelet count is normal. Chemistry: BUN and creatinine are normal. Liver function tests essentially normal. PHYSICAL EXAMINATION: GENERAL: The patient is asthenic. BACK: He has 8 x 5 cm ulcer on the back of spine about T11-T12 area. Necrotic tissues present. This ulcer goes all the way to the bone. EXTREMITIES: There is a left heel ulcer, which is superficial. No evidence of gangrenous changes in both feet. IMPRESSION: 1. Stage IV decubitus ulcer along the spine at T11-T12. 2. Left heel decubitus ulcers, stage II-III. We will schedule the patient to surgery after signature was given by the daughter. JOB# [id number]
[2016-07-03 09:41] LABS: BAND NEUTROPHILE 8 % (0-10); NEUTROPHILS 82 % (40-80); PLATELET ESTIMATE ADEQUATE (NORMAL); PLATELET MORPHOLOGY GIANT PLATELETS SEEN (NORMAL); TOTAL CELLS COUNTED 100
--- NOTE | 2016-07-03 10:47 | Operative Report ---
PREOPERATIVE DIAGNOSES: 1. Stage IV decubitus ulcer, thoracic spine. 2. Left heel decubitus ulcer. POSTOPERATIVE DIAGNOSES: 1. Stage IV decubitus ulcer along the spine T11-T12. 2. Stage III left heel decubitus ulcer. 3. Dementia. 4. Diabetes mellitus. OPERATION DONE: 1. Excisional debridement of spine decubitus ulcers, stage IV. 2. Application of wound VAC. 3. Excisional debridement of left heel decubitus ulcer, size is 3 x 2 cm, spine decubitus ulcer is 8 x 5 cm. ESTIMATED BLOOD LOSS: None. SURGEON: Mariola Nixon MD ANESTHESIA: MAC. ANESTHESIOLOGIST: Damir Leyva M.D. DESCRIPTION OF PROCEDURE: The patient was given IV sedation. He was then placed in the right lateral decubitus physician. The spine ulcer was prepped with Betadine and draped in appropriate manner. Scissors were used to excise all necrotic tissues. The bone is palpable at the base of the ulcer. ____ was applied and silver ____ and wound VAC. The lesion also prepped with Betadine and draped. A knife was used to excise the necrotic tissue, which was extended all the way to the muscle. Santyl ointment will be ordered. JOB# [id number]
[2016-07-03] MEDS: HYDROmorphone 1 mg/mL 1mL Syr IVP PRN ×3 (11:43→21:22)
[2016-07-03] MEDS ORDERED: Lidocaine 2% Gel 5 mL TP ONE (13:36)
[2016-07-03] MEDS: KCL 20mEq/100mL Premix 20 MEQ/100 ML PIGGYBACK IV SCH ×2 (15:31→18:02)
--- NOTE | 2016-07-03 18:21 | Operative Report ---
GASTROINTESTINAL PROCEDURE NAME OF PROCEDURE: PEG tube placement. REFERRING PHYSICIAN: Dr. Limon. REASON FOR PROCEDURE: Anorexia, dysphagia. CONSENT: Risks, benefits, alternatives, nature, indication, possible outcomes were discussed. Mentioned bleeding, infection, perforation, , disability, cardiopulmonary distress and arrest, missed lesion and cancers, need for surgery, cellulitis, malfunctioning feeding tube, patient pulling out the feeding tube. The patient's agreeing republican provided informed consent. PREOPERATIVE DIAGNOSES: Anorexia, dysphagia. POSTOPERATIVE DIAGNOSIS: New PEG placed. MEDICATIONS: Ancef 1 gram and MAC provided by anesthesiologist. DESCRIPTION OF PROCEDURE: The patient was placed on his back. Upper gastroscope advanced from mouth into stomach and second portion of duodenum. Scope brought back in the stomach. Retroflexion view of fundus, cardia, lesser curvature, small hiatal hernia. Scope was straightened and insufflation of the stomach was performed. Transillumination was seen in left upper quadrant and 1:1 transposition of external wall forces were noted. The area was prepped in the usual sterile fashion, 3 mL of 1% lidocaine were used to anesthetize the area. Trocar was advanced from the left anterior abdominal wall, entering stomach lumen. On endoscope view, wire was passed through the trocar, captured with a snare, pulled out of the oral end of the patient. PEG tube was attached to the oral end of the wire. Small lateral incision was made at the entry site of the trocar. Wire was pulled into position pulling along with the PEG tube. Gastroscope readvanced back into the stomach where the bumper seen in satisfactory position. Scope was then removed. COMPLICATIONS: None. FINDINGS: 1. PEG tube placement. 2. Use G-tube in 8 hours. 3. Check residual every 6 hours and hold if greater than 100 mL. 4. Abdominal binder to protect the G-tube. Thank you for allowing me to participate. Please call me if any questions. JOB# [id number]
[2016-07-03] MEDS: D5-0.45NS 1,000 ML IV SCH (23:10)
[2016-07-04] MEDS: HYDROmorphone 1 mg/mL 1mL Syr IVP PRN ×2 (06:16→15:18)
[2016-07-04 07:15] LABS: HEMATOCRIT 30.1 % (39.0-49.0); HEMOGLOBIN 10.4 gm/dL (12.6-17.4); MEAN CELL VOLUME 95.5 fl (80-99); MEAN CORPUSCULAR HEMOGLOBIN 33.1 pg (27.0-31.0); MEAN CORPUSCULAR HGB CONC 34.7 pg (28.0-36.0); MEAN PLATELET VOLUME 8.8 fl; PLATELET COUNT 346 Th/cmm (150-400); RED BLOOD COUNT 3.15 Mil/cmm (3.80-5.80); RED CELL DISTRIBUTION WIDTH 15.1 % (11.5-20.0)
[2016-07-04 08:21] LABS: WHITE BLOOD COUNT 26.5 Th/cmm (4.8-10.8)
[2016-07-04 08:25] LABS: BUN - UREA NITROGEN 14 mg/dL (7-25); CALCIUM SERUM 8.2 mg/dL (8.6-10.3); CHLORIDE 111 mEq/L (98-107); CREATININE - SERUM 0.5 mg/dL (0.7-1.3); GLUCOSE 144 mg/dL (70-105); MAGNESIUM 2.2 mg/dL (1.9-2.7); POTASSIUM SERUM 4.1 mEq/L (3.5-5.1); SODIUM SERUM 138 mEq/L (136-145)
[2016-07-04 08:28] LABS: VANCOMYCIN RANDOM 7.8 ug/mL (5.0-40.0)
[2016-07-04 08:46] LABS: ANION GAP 10.3 (7.0-16.0); CARBON DIOXIDE 20.8 mEq/L (21.0-31.0)
[2016-07-04] MEDS: Sodium Chloride 0.9% 1,000 ML IV SCH (09:06)
[2016-07-04 09:30] LABS: HEMATOCRIT 27.9 % (39.0-49.0); HEMOGLOBIN 9.5 gm/dL (12.6-17.4); MEAN CELL VOLUME 96.2 fl (80-99); MEAN CORPUSCULAR HEMOGLOBIN 32.7 pg (27.0-31.0); MEAN PLATELET VOLUME 8.4 fl; PLATELET COUNT 294 Th/cmm (150-400); RED CELL DISTRIBUTION WIDTH 14.7 % (11.5-20.0)
[2016-07-04 09:31] LABS: ALB/GLOB RATIO 0.9 (1.0-1.8); ALKALINE PHOSPHATASE 82 U/L (34-104); ANION GAP 4.6 (7.0-16.0); BILIRUBIN,TOTAL 0.5 mg/dL (0.3-1.0); BUN - UREA NITROGEN 14 mg/dL (7-25); CALCIUM SERUM 7.7 mg/dL (8.6-10.3); CARBON DIOXIDE 23.2 mEq/L (21.0-31.0); CHLORIDE 112 mEq/L (98-107); CREATININE - SERUM 0.5 mg/dL (0.7-1.3); GLUCOSE 139 mg/dL (70-105); POTASSIUM SERUM 3.8 mEq/L (3.5-5.1); SGOT 27 U/L (13-39); SGPT/ALT 15 U/L (7-52); SODIUM SERUM 136 mEq/L (136-145)
[2016-07-04 09:39] LABS: WHITE BLOOD COUNT 24.3 Th/cmm (4.8-10.8)
[2016-07-04 10:06] LABS: BAND NEUTROPHILE 11 % (0-10); METAMYELOCYTE 1 % (0-0); NEUTROPHILS 82 % (40-80); PLATELET ESTIMATE ADEQUATE (NORMAL); PLATELET MORPHOLOGY NORMAL (NORMAL); TOTAL CELLS COUNTED 100
--- NOTE | 2016-07-04 10:11 | Diagnostic Imaging Report ---
CHEST X-RAY: AP view INDICATION: Sepsis COMPARISON: Chest x-ray 07/02/2015 FINDINGS: Chronic lung changes are noted right basal lung markings. There may be a trace right effusion. Cardiomegaly is noted with tortuous thoracic aorta and atherosclerosis. IMPRESSION: Chronic lung changes with increased right basal lung markings favoring chronic etiology, however, superimposed focal infiltrate cannot be excluded. Cardiomegaly and atherosclerotic vascular disease.
[2016-07-04 10:25] LABS: BAND NEUTROPHILE 5 % (0-10); NEUTROPHILS 88 % (40-80); PLATELET ESTIMATE ADEQUATE (NORMAL); PLATELET MORPHOLOGY NORMAL (NORMAL); TOTAL CELLS COUNTED 100
[2016-07-04 12:28] LABS: URINE BILIRUBIN SMALL (NEGATIVE); URINE BLOOD SMALL (NEGATIVE); URINE COLOR YELLOW; URINE GLUCOSE (UA) NEGATIVE (NEGATIVE); URINE KETONE NEGATIVE (NEGATIVE); URINE PH 6.5; URINE PROTEIN 100 mg/dL (NEGATIVE); URINE UROBILINOGEN 0.2 E.U./dL (0.2 - 1.0)
[2016-07-04 12:29] LABS: URINE BACTERIA FEW /hpf (NONE SEEN); URINE EPITHELIAL CELLS OCCASIONAL /lpf (FEW)
[2016-07-04] MEDS: Venelex 60gm Tube TP SCH (15:18)
--- NOTE | 2016-07-04 15:23 | Pathology Report ---
[id number] Collection Date: 07/03/2016 Surgeon: Dr. Neville Garnett Specimen Description: 1. Posterior chest wall 2. Debrided tissue, left heel Gross Description: Part I: Received in formalin are multiple irregular, james-woo soft tissue fragments ranging from 0.8 to 3.8 cm in greatest dimension. Sectioning shows degenerated, necrotic-appearing soft tissue. Retail Office [employer] sections are submitted in one cassette labeled A. Gross Description: Part II: Received in formalin are two excisions of grayish-brown, necrotic-appearing skin. [employer] sections are submitted in one cassette labeled B. Microscopic Description: Part I: The histologic sections show degenerated fibroconnective tissue with extensive necrosis and acute inflammation, consisting of large collections of neutrophils within a necrotic background. Diagnosis: Part I: Necrotic fibroconnective tissue consistent with debridement (posterior chest wall). Microscopic Description: Part II: The histologic sections show ulcerated skin with extensive necrosis and acute inflammation, consisting of large collections of neutrophils. Diagnosis: Part II: Ulcerated necrotic skin consistent with debridement (left heel). [facility]# [id number]
--- NOTE | 2016-07-04 18:54 | General Progress Note ---
Subjective - Review of Systems Events since last encounter: 07/04/16 continue wound vac suction labs noted Objective - Results Result Diagrams: 07/04/16 08:50 07/04/16 08:50 Recent Labs: Laboratory Last Values WBC 24.3 Th/cmm (4.8-10.8) H* 07/04/16 08:50 RBC 2.90 Mil/cmm (3.80-5.80) L 07/04/16 08:50 Hgb 9.5 gm/dL (12.6-17.4) L 07/04/16 08:50 Hct 27.9 % (39.0-49.0) L 07/04/16 08:50 MCV 96.2 fl (80-99) 07/04/16 08:50 MCH 32.7 pg (27.0-31.0) H 07/04/16 08:50 MCHC Differential 34.0 pg (28.0-36.0) 07/04/16 08:50 RDW 14.7 % (11.5-20.0) 07/04/16 08:50 Plt Count 294 Th/cmm (150-400) 07/04/16 08:50 MPV 8.4 fl 07/04/16 08:50 Band Neutrophils % 5 % (0-10) 07/04/16 08:50 Neutrophils (Manual) 88 % (40-80) H 07/04/16 08:50 Lymphocytes 3 % (20-50) L 07/04/16 08:50 Monocytes 4 % (2-10) 07/04/16 08:50 Metamyelocytes 1 % (0-0) H 07/04/16 05:41 Platelet Estimate ADEQUATE (NORMAL) 07/04/16 08:50 Platelet Morphology NORMAL (NORMAL) 07/04/16 08:50 RBC Morph Micro Appear NORMAL (NORMAL) 07/04/16 08:50 ESR 35 mm/hr (0-20) H 07/02/16 06:00 PT 12.5 SECONDS (9.5-11.5) H 07/03/16 06:29 INR 1.19 (0.5-1.4) 07/03/16 06:29 PTT (Actin FS) 31.5 SECONDS (26.0-38.0) 07/02/16 06:00 Sodium 136 mEq/L (136-145) 07/04/16 08:50 Potassium 3.8 mEq/L (3.5-5.1) 07/04/16 08:50 Chloride 112 mEq/L (98-107) H 07/04/16 08:50 Carbon Dioxide 23.2 mEq/L (21.0-31.0) 07/04/16 08:50 Anion Gap 4.6 (7.0-16.0) L 07/04/16 08:50 BUN 14 mg/dL (7-25) 07/04/16 08:50 Creatinine 0.5 mg/dL (0.7-1.3) L 07/04/16 08:50 Est GFR ( Amer) TNP 07/04/16 08:50 Est GFR (Non-Af Amer) TNP 07/04/16 08:50 BUN/Creatinine Ratio 28.0 07/04/16 08:50 Glucose 139 mg/dL (70-105) H 07/04/16 08:50 Whole Bld Lactic Acid 1.61 mmol/L (0.60-1.99) 07/04/16 08:50 Calcium 7.7 mg/dL (8.6-10.3) L 07/04/16 08:50 Magnesium 2.2 mg/dL (1.9-2.7) 07/04/16 05:41 Total Bilirubin 0.5 mg/dL (0.3-1.0) 07/04/16 08:50 AST 27 U/L (13-39) 07/04/16 08:50 ALT 15 U/L (7-52) 07/04/16 08:50 Alkaline Phosphatase 82 U/L (34-104) 07/04/16 08:50 C-Reactive Protein 4.0 mg/dL (0.0-0.9) H 07/02/16 06:00 Total Protein 4.9 gm/dL (6.0-8.3) L 07/04/16 08:50 Albumin 2.3 gm/dL (4.2-5.5) L 07/04/16 08:50 Globulin 2.6 gm/dL 07/04/16 08:50 Albumin/Globulin Ratio 0.9 (1.0-1.8) L 07/04/16 08:50 Prealbumin 7 mg/dL (9-32) L 07/02/16 06:00 Triglycerides 90 mg/dL (<150) 07/02/16 06:00 Cholesterol 103 mg/dL (<200) 07/02/16 06:00 LDL Cholesterol Direct 55 mg/dL (75-193) L 07/02/16 06:00 HDL Cholesterol 32 mg/dL (23-92) 07/02/16 06:00 TSH 2.42 uIU/ml (0.34-5.60) 07/02/16 06:00 Urine Source [place] 07/04/16 11:55 Urine Color YELLOW 07/04/16 11:55 Urine Clarity [place]. [place] (CLEAR) 07/04/16 11:55 Urine pH 6.5 07/04/16 11:55 Ur Specific [place] 1.025 (1.005-1.030) 07/04/16 11:55 Urine Protein 100 mg/dL (NEGATIVE) H 07/04/16 11:55 Urine Glucose (UA) NEGATIVE mg/dL (NEGATIVE) 07/04/16 11:55 Urine Ketones NEGATIVE mg/dL (NEGATIVE) 07/04/16 11:55 Urine Blood SMALL (NEGATIVE) H 07/04/16 11:55 Urine Nitrate NEGATIVE (NEGATIVE) 07/04/16 11:55 Urine Bilirubin SMALL (NEGATIVE) H 07/04/16 11:55 Urine Urobilinogen 0.2 E.U./dL (0.2 - 1.0) 07/04/16 11:55 Ur Leukocyte Esterase TRACE (NEGATIVE) H 07/04/16 11:55 Urine RBC 4-7 /hpf (0-5) 07/04/16 11:55 Urine WBC 6-10 /hpf (0-5) H 07/04/16 11:55 Ur Epithelial Cells OCCASIONAL /lpf (FEW) 07/04/16 11:55 Calcium Oxalate Crystal FEW /hpf 07/01/16 15:40 Urine Bacteria FEW /hpf (NONE SEEN) 07/04/16 11:55 Random Vancomycin 7.8 ug/mL (5.0-40.0) 07/04/16 05:41 - Physical Exam Vitals and I&O: Vital Signs Temp 100.1 F 07/04/16 16:36 Pulse 89 07/04/16 16:36 Resp 16 07/04/16 16:36 BP 94/48 07/04/16 16:36 Pulse Ox 97 07/04/16 16:36 Intake & Output 07/03/16 07/04/16 07/04/16 18:59 06:59 18:59 Intake Total 1200 760 Output Total 300 Balance 1200 460 Intake: Intake, IV Amount 1200 400 D5-0.45NS 1,000 ml @ 60 1000 mls/hr IV .[id number] [facility] Rx #:[id number] KCL 20mEq/100mL Premix 20 100 meq In 100 ml @ 50 mls/ hr IV Q2H [facility] Rx#: [id number] Piperacillin Sodium/ 150 Tazobact 3.375 gm In Sodium Chloride 0.9% 50 ml @ 100 mls/hr IV Q6HR [facility] Rx#:[id number] Vancomycin HCl 1.25 gm In 250 Sodium Chloride 0.9% 250 ml @ 165 mls/hr IV Q24H [facility] Rx#:[id number] cefTRIAXone 1 gm In 50 Sodium Chloride 0.9% 50 ml @ 100 mls/hr IV Q24HR [facility] Rx#:[id number] Other 360 Output: Urine 300 Other: # Bowel Movements 1 Active Medications: Current Medications Acetaminophen (Tylenol) 650 mg PO Q6H PRN PRN Reason: MILD PAIN OR ELEVATED TEMP Albuterol/Ipratropium (Duoneb Neb) 3 ml HHN Q4H PRN PRN Reason: Wheezing Stop: 08/30/16 20:49 Amiodarone HCl (Cordarone) 200 mg PO DAILY [facility] Stop: 08/31/16 08:59 Last Admin: 07/04/16 09:07 Dose: 200 mg Bacitracin (Baciquent) 1 appl TP DAILY [facility] Stop: 08/31/16 08:59 Last Admin: 07/04/16 15:18 Dose: 1 appl Hydromorphone HCl (Dilaudid) 0.5 mg IVP Q4H PRN PRN Reason: Pain (Severe) Stop: 08/30/16 20:59 Last Admin: 07/04/16 15:18 Dose: 0.5 mg Piperacillin Sod/Tazobactam (Sod 3.375 gm/ Sodium Chloride) 50 mls @ 100 mls/ hr IV Q6HR [facility] Stop: 09/02/16 08:44 Last Infusion: 07/04/16 18:42 Dose: Infused Sodium Chloride (Nacl 0.9%) 1,000 mls @ 125 mls/hr IV .Q8H [facility] Stop: 09/02/16 08:46 Last Admin: 07/04/16 09:06 Dose: 125 mls/hr Vancomycin HCl 1.25 gm/ Sodium (Chloride) 250 mls @ 165 mls/hr IV Q24H [facility] Stop: 09/02/16 09:59 Last Infusion: 07/04/16 12:35 Dose: Infused Miscellaneous (Calcium Alginate [Mitchel]) 1 each TP DAILY [facility] Stop: 08/31/16 08:59 Miscellaneous (Tab Ointment) 1 unit TP DAILY [facility] Stop: 08/31/16 08:59 Miscellaneous (Vancomycin Iv Per Pharmacy) 1 ea [facility] DAILY [facility] Stop: 09/02/16 08:59 Rivaroxaban (Xarelto) 10 mg PO DAILY [facility] Stop: 08/31/16 08:59 Last Admin: 07/04/16 09:07 Dose: 10 mg Zolpidem Tartrate (Ambien) 10 mg GT HS PRN PRN Reason: Insomnia Stop: 09/01/16 09:53 Last Admin: 07/04/16 00:54 Dose: 10 mg - Procedures Procedures: Procedures Procedure Code Date EXCISION OF LEFT FOOT MUSCLE, OPEN APPROACH [id number] 07/01/16 EXCISION OF THORACIC VERTEBRA, OPEN APPROACH [id number] 07/01/16 REMOVAL OF PRESSURE SORE 04090 07/01/16 Assessment/Plan - Problem List Patient Problems: All Active Problems FAILURE TO THRIVE, G-TUBE EVAL (Acute) Nutritional Asmnt/Malnutr-PDOC - Dietary Evaluation Malnutrition Findings (Please click <Entered> for more info): Nutritional Asmnt/Malnutrition Start: 07/02/16 10: 46 Text: Status: Complete Freq: Document 07/02/16 10:46 GSUN (Rec: 07/02/16 11:13 GSUN [id number]) Nutritional Asmnt/Malnutrition Patient General Information Nutritional Screening High Risk Screening Diagnosis ER: FTT, renal insufficiency dehydration, chronic decubitus ulcers mid back Pertinent Medical Hx/Surgical Hx ER: HTN, CAD, asthma/COPD, arthritis, dementia, BPH, chronic anemia Subjective Information 85 year old male from SNF. Per ER: poor PO and FTT, admitted for evaluation for g tube placement. 07/02 swallow eval: strict NPO, alternative methods of nutrition. Pt with eyes opened, did not make eye contact with RD, both hands with mittens on. Pt appeared thin overall, muscle/fat wasting to temporals, all 4 extremities, clavicles noted. 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 Estimated Nutritional Goals Calories/Kcals/Kg IBW 124lb/56.4kg Kcals Calculated 1410-1692kcal (25-30kcal/kg) Protein g/kg: IBW Protein Calculated 56-78g (1-1.4g/kg) Fluid: ml 1410-1692ml (1ml/kcal) Nutritional Problem 1. Problem Problem Difficulty swallowing related to Etiology failed swallow evaluation aeb Signs/Symptoms: ST recommend strict NPO, alternative methods of nutrition Intervention/Recommendation Comments 1. Recommend Fibersource at goal rate 50ml/hr x 24hrs, providing 1200ml total volume, 1440kcal, 65g protein, 940ml free water. Begin at 25ml/hr for first 24 hrs, monitor tolerance, increase rate by 10ml/hr q6hrs until goal rate of 50ml/hr. 2. Recommend 120ml water flush q6hrs if IV discontinued. Expected Outcomes/Goals Expected Outcomes/Goals 1. PT to meet 100% estimated nutritional needs on tube feeding with tolerance.
[2016-07-05] MEDS: HYDROmorphone 1 mg/mL 1mL Syr IVP PRN ×3 (00:35→22:58)
[2016-07-05] MEDS: Sodium Chloride 0.9% 1,000 ML IV SCH (03:21)
[2016-07-05 07:19] LABS: HEMATOCRIT 28.5 % (39.0-49.0); HEMOGLOBIN 9.7 gm/dL (12.6-17.4); MEAN CELL VOLUME 97.1 fl (80-99); MEAN PLATELET VOLUME 8.5 fl; PLATELET COUNT 306 Th/cmm (150-400); RED BLOOD COUNT 2.93 Mil/cmm (3.80-5.80); RED CELL DISTRIBUTION WIDTH 14.6 % (11.5-20.0)
[2016-07-05 07:36] LABS: ANION GAP 7.6 (7.0-16.0); BUN - UREA NITROGEN 15 mg/dL (7-25); CALCIUM SERUM 7.6 mg/dL (8.6-10.3); CARBON DIOXIDE 24.2 mEq/L (21.0-31.0); CHLORIDE 114 mEq/L (98-107); CREATININE - SERUM 0.5 mg/dL (0.7-1.3); GLUCOSE 135 mg/dL (70-105); POTASSIUM SERUM 3.8 mEq/L (3.5-5.1); SODIUM SERUM 142 mEq/L (136-145)
[2016-07-05 08:19] LABS: WHITE BLOOD COUNT 28.8 Th/cmm (4.8-10.8)
[2016-07-05 08:42] LABS: BAND NEUTROPHILE 13 % (0-10); NEUTROPHILS 80 % (40-80); TOTAL CELLS COUNTED 100
[2016-07-05 08:43] LABS: PLATELET ESTIMATE ADEQUATE (NORMAL); PLATELET MORPHOLOGY NORMAL (NORMAL)
[2016-07-05] MEDS: Venelex 60gm Tube TP SCH (09:00)
[2016-07-05] MEDS: Sodium Chloride 0.45% 1,000 ML IV SCH (11:16)
--- NOTE | 2016-07-05 11:22 | General Progress Note ---
Subjective - Review of Systems Events since last encounter: 07/05/16 persistent leukocytosis wound change MWF Objective - Results Result Diagrams: 07/05/16 06:16 07/05/16 06:16 Recent Labs: Laboratory Last Values WBC 28.8 Th/cmm (4.8-10.8) H* 07/05/16 06:16 RBC 2.93 Mil/cmm (3.80-5.80) L 07/05/16 06:16 Hgb 9.7 gm/dL (12.6-17.4) L 07/05/16 06:16 Hct 28.5 % (39.0-49.0) L 07/05/16 06:16 MCV 97.1 fl (80-99) 07/05/16 06:16 MCH 33.0 pg (27.0-31.0) H 07/05/16 06:16 MCHC Differential 34.0 pg (28.0-36.0) 07/05/16 06:16 RDW 14.6 % (11.5-20.0) 07/05/16 06:16 Plt Count 306 Th/cmm (150-400) 07/05/16 06:16 MPV 8.5 fl 07/05/16 06:16 Band Neutrophils % 13 % (0-10) H 07/05/16 06:16 Neutrophils (Manual) 80 % (40-80) 07/05/16 06:16 Lymphocytes 3 % (20-50) L 07/05/16 06:16 Monocytes 4 % (2-10) 07/05/16 06:16 Metamyelocytes 1 % (0-0) H 07/04/16 05:41 Platelet Estimate ADEQUATE (NORMAL) 07/05/16 06:16 Platelet Morphology NORMAL (NORMAL) 07/05/16 06:16 RBC Morph Micro Appear NORMAL (NORMAL) 07/05/16 06:16 ESR 20 mm/hr (0-20) 07/05/16 06:16 PT 12.5 SECONDS (9.5-11.5) H 07/03/16 06:29 INR 1.19 (0.5-1.4) 07/03/16 06:29 PTT (Actin FS) 31.5 SECONDS (26.0-38.0) 07/02/16 06:00 Sodium 142 mEq/L (136-145) 07/05/16 06:16 Potassium 3.8 mEq/L (3.5-5.1) 07/05/16 06:16 Chloride 114 mEq/L (98-107) H 07/05/16 06:16 Carbon Dioxide 24.2 mEq/L (21.0-31.0) 07/05/16 06:16 Anion Gap 7.6 (7.0-16.0) 07/05/16 06:16 BUN 15 mg/dL (7-25) 07/05/16 06:16 Creatinine 0.5 mg/dL (0.7-1.3) L 07/05/16 06:16 Est GFR ( Amer) TNP 07/05/16 06:16 Est GFR (Non-Af Amer) TNP 07/05/16 06:16 BUN/Creatinine Ratio 30.0 07/05/16 06:16 Glucose 135 mg/dL (70-105) H 07/05/16 06:16 Whole Bld Lactic Acid 1.61 mmol/L (0.60-1.99) 07/04/16 08:50 Calcium 7.6 mg/dL (8.6-10.3) L 07/05/16 06:16 Magnesium 2.0 mg/dL (1.9-2.7) 07/05/16 06:16 Total Bilirubin 0.5 mg/dL (0.3-1.0) 07/04/16 08:50 AST 27 U/L (13-39) 07/04/16 08:50 ALT 15 U/L (7-52) 07/04/16 08:50 Alkaline Phosphatase 82 U/L (34-104) 07/04/16 08:50 C-Reactive Protein 4.0 mg/dL (0.0-0.9) H 07/02/16 06:00 Total Protein 4.9 gm/dL (6.0-8.3) L 07/04/16 08:50 Albumin 2.3 gm/dL (4.2-5.5) L 07/04/16 08:50 Globulin 2.6 gm/dL 07/04/16 08:50 Albumin/Globulin Ratio 0.9 (1.0-1.8) L 07/04/16 08:50 Prealbumin 7 mg/dL (9-32) L 07/02/16 06:00 Triglycerides 90 mg/dL (<150) 07/02/16 06:00 Cholesterol 103 mg/dL (<200) 07/02/16 06:00 LDL Cholesterol Direct 55 mg/dL (75-193) L 07/02/16 06:00 HDL Cholesterol 32 mg/dL (23-92) 07/02/16 06:00 TSH 2.42 uIU/ml (0.34-5.60) 07/02/16 06:00 Urine Source [place] 07/04/16 11:55 Urine Color YELLOW 07/04/16 11:55 Urine Clarity SL. CLOUDY (CLEAR) 07/04/16 11:55 Urine pH 6.5 07/04/16 11:55 Ur Specific [facility] 1.025 (1.005-1.030) 07/04/16 11:55 Urine Protein 100 mg/dL (NEGATIVE) H 07/04/16 11:55 Urine Glucose (UA) NEGATIVE mg/dL (NEGATIVE) 07/04/16 11:55 Urine Ketones NEGATIVE mg/dL (NEGATIVE) 07/04/16 11:55 Urine Blood SMALL (NEGATIVE) H 07/04/16 11:55 Urine Nitrate NEGATIVE (NEGATIVE) 07/04/16 11:55 Urine Bilirubin SMALL (NEGATIVE) H 07/04/16 11:55 Urine Urobilinogen 0.2 E.U./dL (0.2 - 1.0) 07/04/16 11:55 Ur Leukocyte Esterase TRACE (NEGATIVE) H 07/04/16 11:55 Urine RBC 4-7 /hpf (0-5) 07/04/16 11:55 Urine WBC 6-10 /hpf (0-5) H 07/04/16 11:55 Ur Epithelial Cells OCCASIONAL /lpf (FEW) 07/04/16 11:55 Calcium Oxalate Crystal FEW /hpf 07/01/16 15:40 Urine Bacteria FEW /hpf (NONE SEEN) 07/04/16 11:55 Random Vancomycin 7.8 ug/mL (5.0-40.0) 07/04/16 05:41 - Physical Exam Vitals and I&O: Vital Signs Temp 99.6 F 07/05/16 04:00 Pulse 110 07/05/16 09:00 Resp 20 07/05/16 08:00 BP 137/70 07/05/16 04:00 Pulse Ox 100 07/05/16 04:00 Intake & Output 07/04/16 07/05/16 07/05/16 18:59 06:59 18:59 Intake Total 1760 650 768.75 Output Total 300 550 Balance 1460 100 768.75 Intake: Intake, IV Amount 1400 50 768.75 Piperacillin Sodium/ 150 50 Tazobact 3.375 gm In Sodium Chloride 0.9% 50 ml @ 100 mls/hr IV Q6HR [facility] Rx#:[id number] Sodium Chloride 0.9% 1, 1000 000 ml @ 125 mls/hr IV . Q8H [facility] Rx#:[id number] Vancomycin HCl 1.25 gm In 250 Sodium Chloride 0.9% 250 ml @ 165 mls/hr IV Q24H [facility] Rx#:[id number] Tube Feeding 480 Other 360 120 Output: Urine 300 550 Other: # Bowel Movements 1 2 Stool Characteristics Soft Soft Brown Brown Active Medications: Current Medications Acetaminophen (Tylenol) 650 mg PO Q6H PRN PRN Reason: MILD PAIN OR ELEVATED TEMP Last Admin: 07/04/16 20:59 Dose: 650 mg Albuterol/Ipratropium (Duoneb Neb) 3 ml HHN Q4H PRN PRN Reason: Wheezing Stop: 08/30/16 20:49 Amiodarone HCl (Cordarone) 200 mg PO DAILY [facility] Stop: 08/31/16 08:59 Last Admin: 07/05/16 09:00 Dose: 200 mg Bacitracin (Baciquent) 1 appl TP DAILY [facility] Stop: 08/31/16 08:59 Last Admin: 07/05/16 09:00 Dose: 1 appl Hydromorphone HCl (Dilaudid) 0.5 mg IVP Q4H PRN PRN Reason: Pain (Severe) Stop: 08/30/16 20:59 Last Admin: 07/05/16 09:00 Dose: 0.5 mg Piperacillin Sod/Tazobactam (Sod 3.375 gm/ Sodium Chloride) 50 mls @ 100 mls/ hr IV Q6HR [facility] Stop: 09/02/16 08:44 Last Admin: 07/05/16 05:16 Dose: 100 mls/hr Vancomycin HCl 1.25 gm/ Sodium (Chloride) 250 mls @ 165 mls/hr IV Q24H [facility] Stop: 09/02/16 09:59 Last Admin: 07/05/16 10:51 Dose: 165 mls/hr Sodium Chloride (Nacl 0.45%) 1,000 mls @ 75 mls/hr IV .[id number] [facility] Stop: 09/03/16 09:29 Last Admin: 07/05/16 11:16 Dose: 75 mls/hr Miscellaneous (Calcium Alginate [Mitchel]) 1 each TP DAILY [facility] Stop: 08/31/16 08:59 Miscellaneous (Tab Ointment) 1 unit TP DAILY [facility] Stop: 08/31/16 08:59 Miscellaneous (Vancomycin Iv Per Pharmacy) 1 ea MC DAILY [facility] Stop: 09/02/16 08:59 Rivaroxaban (Xarelto) 10 mg PO DAILY [facility] Stop: 08/31/16 08:59 Last Admin: 07/05/16 09:00 Dose: 10 mg Zolpidem Tartrate (Ambien) 10 mg GT HS PRN PRN Reason: Insomnia Stop: 09/01/16 09:53 Last Admin: 07/04/16 20:59 Dose: 10 mg - Procedures Procedures: Procedures Procedure Code Date EXCISION OF LEFT FOOT MUSCLE, OPEN APPROACH [id number] 07/01/16 EXCISION OF THORACIC VERTEBRA, OPEN APPROACH [id number] 07/01/16 REMOVAL OF PRESSURE SORE 38974 07/01/16 Assessment/Plan - Problem List Patient Problems: All Active Problems FAILURE TO THRIVE, G-TUBE EVAL (Acute) Nutritional Asmnt/Malnutr-PDOC - Dietary Evaluation Malnutrition Findings (Please click <Entered> for more info): Nutritional Asmnt/Malnutrition Start: 07/02/16 10: 46 Text: Status: Complete Freq: Document 07/02/16 10:46 GSUN (Rec: 07/02/16 11:13 [id number]) Nutritional Asmnt/Malnutrition Patient General Information Nutritional Screening High Risk Screening Diagnosis ER: FTT, renal insufficiency dehydration, chronic decubitus ulcers mid back Pertinent Medical Hx/Surgical Hx ER: HTN, CAD, asthma/COPD, arthritis, dementia, BPH, chronic anemia Subjective Information 85 year old male from SNF. Per ER: poor PO and FTT, admitted for evaluation for g tube placement. 07/02 swallow eval: strict NPO, alternative methods of nutrition. Pt with eyes opened, did not make eye contact with RD, both hands with mittens on. Pt appeared thin overall, muscle/fat wasting to temporals, all 4 extremities, clavicles noted. 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 Estimated Nutritional Goals Calories/Kcals/Kg IBW 124lb/56.4kg Kcals Calculated 1410-1692kcal (25-30kcal/kg) Protein g/kg: IBW Protein Calculated 56-78g (1-1.4g/kg) Fluid: ml 1410-1692ml (1ml/kcal) Nutritional Problem 1. Problem Problem Difficulty swallowing related to Etiology failed swallow evaluation aeb Signs/Symptoms: ST recommend strict NPO, alternative methods of nutrition Intervention/Recommendation Comments 1. Recommend Fibersource at goal rate 50ml/hr x 24hrs, providing 1200ml total volume, 1440kcal, 65g protein, 940ml free water. Begin at 25ml/hr for first 24 hrs, monitor tolerance, increase rate by 10ml/hr q6hrs until goal rate of 50ml/hr. 2. Recommend 120ml water flush q6hrs if IV discontinued. Expected Outcomes/Goals Expected Outcomes/Goals 1. PT to meet 100% estimated nutritional needs on tube feeding with tolerance.
--- NOTE | 2016-07-05 15:39 | Infectious Disease Prog Note ---
Infectious Disease Subjective - Review of Systems Service Date: 07/05/16 Subjective: There is no fever. Infectious Disease Objective - Results Result Diagrams: 07/05/16 06:16 07/05/16 06:16 Recent Labs: Laboratory Last Values WBC 28.8 Th/cmm (4.8-10.8) H* 07/05/16 06:16 RBC 2.93 Mil/cmm (3.80-5.80) L 07/05/16 06:16 Hgb 9.7 gm/dL (12.6-17.4) L 07/05/16 06:16 Hct 28.5 % (39.0-49.0) L 07/05/16 06:16 MCV 97.1 fl (80-99) 07/05/16 06:16 MCH 33.0 pg (27.0-31.0) H 07/05/16 06:16 MCHC Differential 34.0 pg (28.0-36.0) 07/05/16 06:16 RDW 14.6 % (11.5-20.0) 07/05/16 06:16 Plt Count 306 Th/cmm (150-400) 07/05/16 06:16 MPV 8.5 fl 07/05/16 06:16 Band Neutrophils % 13 % (0-10) H 07/05/16 06:16 Neutrophils (Manual) 80 % (40-80) 07/05/16 06:16 Lymphocytes 3 % (20-50) L 07/05/16 06:16 Monocytes 4 % (2-10) 07/05/16 06:16 Metamyelocytes 1 % (0-0) H 07/04/16 05:41 Platelet Estimate ADEQUATE (NORMAL) 07/05/16 06:16 Platelet Morphology NORMAL (NORMAL) 07/05/16 06:16 RBC Morph Micro Appear NORMAL (NORMAL) 07/05/16 06:16 ESR 20 mm/hr (0-20) 07/05/16 06:16 PT 12.5 SECONDS (9.5-11.5) H 07/03/16 06:29 INR 1.19 (0.5-1.4) 07/03/16 06:29 PTT (Actin FS) 31.5 SECONDS (26.0-38.0) 07/02/16 06:00 Sodium 142 mEq/L (136-145) 07/05/16 06:16 Potassium 3.8 mEq/L (3.5-5.1) 07/05/16 06:16 Chloride 114 mEq/L (98-107) H 07/05/16 06:16 Carbon Dioxide 24.2 mEq/L (21.0-31.0) 07/05/16 06:16 Anion Gap 7.6 (7.0-16.0) 07/05/16 06:16 BUN 15 mg/dL (7-25) 07/05/16 06:16 Creatinine 0.5 mg/dL (0.7-1.3) L 07/05/16 06:16 Est GFR ( Amer) TNP 07/05/16 06:16 Est GFR (Non-Af Amer) TNP 07/05/16 06:16 BUN/Creatinine Ratio 30.0 07/05/16 06:16 Glucose 135 mg/dL (70-105) H 07/05/16 06:16 Whole Bld Lactic Acid 1.61 mmol/L (0.60-1.99) 07/04/16 08:50 Calcium 7.6 mg/dL (8.6-10.3) L 07/05/16 06:16 Magnesium 2.0 mg/dL (1.9-2.7) 07/05/16 06:16 Total Bilirubin 0.5 mg/dL (0.3-1.0) 07/04/16 08:50 AST 27 U/L (13-39) 07/04/16 08:50 ALT 15 U/L (7-52) 07/04/16 08:50 Alkaline Phosphatase 82 U/L (34-104) 07/04/16 08:50 C-Reactive Protein 8.9 mg/dL (0.0-0.9) H 07/05/16 06:16 Total Protein 4.9 gm/dL (6.0-8.3) L 07/04/16 08:50 Albumin 2.3 gm/dL (4.2-5.5) L 07/04/16 08:50 Globulin 2.6 gm/dL 07/04/16 08:50 Albumin/Globulin Ratio 0.9 (1.0-1.8) L 07/04/16 08:50 Prealbumin 7 mg/dL (9-32) L 07/02/16 06:00 Triglycerides 90 mg/dL (<150) 07/02/16 06:00 Cholesterol 103 mg/dL (<200) 07/02/16 06:00 LDL Cholesterol Direct 55 mg/dL (75-193) L 07/02/16 06:00 HDL Cholesterol 32 mg/dL (23-92) 07/02/16 06:00 TSH 2.42 uIU/ml (0.34-5.60) 07/02/16 06:00 Urine Source [place] 07/04/16 11:55 Urine Color YELLOW 07/04/16 11:55 Urine Clarity SL. CLOUDY (CLEAR) 07/04/16 11:55 Urine pH 6.5 07/04/16 11:55 Ur Specific [place] 1.025 (1.005-1.030) 07/04/16 11:55 Urine Protein 100 mg/dL (NEGATIVE) H 07/04/16 11:55 Urine Glucose (UA) NEGATIVE mg/dL (NEGATIVE) 07/04/16 11:55 Urine Ketones NEGATIVE mg/dL (NEGATIVE) 07/04/16 11:55 Urine Blood SMALL (NEGATIVE) H 07/04/16 11:55 Urine Nitrate NEGATIVE (NEGATIVE) 07/04/16 11:55 Urine Bilirubin SMALL (NEGATIVE) H 07/04/16 11:55 Urine Urobilinogen 0.2 E.U./dL (0.2 - 1.0) 07/04/16 11:55 Ur Leukocyte Esterase TRACE (NEGATIVE) H 07/04/16 11:55 Urine RBC 4-7 /hpf (0-5) 07/04/16 11:55 Urine WBC 6-10 /hpf (0-5) H 07/04/16 11:55 Ur Epithelial Cells OCCASIONAL /lpf (FEW) 07/04/16 11:55 Calcium Oxalate Crystal FEW /hpf 07/01/16 15:40 Urine Bacteria FEW /hpf (NONE SEEN) 07/04/16 11:55 Random Vancomycin 7.8 ug/mL (5.0-40.0) 07/04/16 05:41 - Physical Exam Vitals and I&O: Vital Signs Temp 99.6 F 07/05/16 04:00 Pulse 110 07/05/16 09:00 Resp 20 07/05/16 12:00 BP 137/70 07/05/16 04:00 Pulse Ox 100 07/05/16 04:00 Intake & Output 07/04/16 07/05/16 07/05/16 18:59 06:59 18:59 Intake Total 9524 629 7273.75 Output Total 300 550 Balance 4702 203 6247.75 Intake: Intake, IV Amount 7075 643 6617.75 Piperacillin Sodium/ 150 100 Tazobact 3.375 gm In Sodium Chloride 0.9% 50 ml @ 100 mls/hr IV Q6HR [facility] Rx#:[id number] Sodium Chloride 0.9% 1, 1000 000 ml @ 125 mls/hr IV . Q8H [facility] Rx#:[id number] Vancomycin HCl 1.25 gm In 250 250 Sodium Chloride 0.9% 250 ml @ 165 mls/hr IV Q24H [facility] Rx#:[id number] Tube Feeding 480 Other 360 120 Output: Urine 300 550 Other: # Bowel Movements 1 2 Stool Characteristics Soft Soft Brown Brown Active Medications: Current Medications Acetaminophen (Tylenol) 650 mg PO Q6H PRN PRN Reason: MILD PAIN OR ELEVATED TEMP Last Admin: 07/04/16 20:59 Dose: 650 mg Albuterol/Ipratropium (Duoneb Neb) 3 ml HHN Q4H PRN PRN Reason: Wheezing Stop: 08/30/16 20:49 Amiodarone HCl (Cordarone) 200 mg PO DAILY [facility] Stop: 08/31/16 08:59 Last Admin: 07/05/16 09:00 Dose: 200 mg Bacitracin (Baciquent) 1 appl TP DAILY [facility] Stop: 08/31/16 08:59 Last Admin: 07/05/16 09:00 Dose: 1 appl Hydromorphone HCl (Dilaudid) 0.5 mg IVP Q4H PRN PRN Reason: Pain (Severe) Stop: 08/30/16 20:59 Last Admin: 07/05/16 09:00 Dose: 0.5 mg Piperacillin Sod/Tazobactam (Sod 3.375 gm/ Sodium Chloride) 50 mls @ 100 mls/ hr IV Q6HR [facility] Stop: 09/02/16 08:44 Last Admin: 07/05/16 12:55 Dose: 100 mls/hr Vancomycin HCl 1.25 gm/ Sodium (Chloride) 250 mls @ 165 mls/hr IV Q24H [facility] Stop: 09/02/16 09:59 Last Infusion: 07/05/16 12:22 Dose: Infused Sodium Chloride (Nacl 0.45%) 1,000 mls @ 75 mls/hr IV .[id number] [facility] Stop: 09/03/16 09:29 Last Admin: 07/05/16 11:16 Dose: 75 mls/hr Miscellaneous (Calcium Alginate [Mitchel]) 1 each TP DAILY [facility] Stop: 08/31/16 08:59 Miscellaneous (Tab Ointment) 1 unit TP DAILY [facility] Stop: 08/31/16 08:59 Miscellaneous (Vancomycin Iv Per Pharmacy) 1 ea MC DAILY [facility] Stop: 09/02/16 08:59 Rivaroxaban (Xarelto) 10 mg PO DAILY [facility] Stop: 08/31/16 08:59 Last Admin: 07/05/16 09:00 Dose: 10 mg Zolpidem Tartrate (Ambien) 10 mg GT HS PRN PRN Reason: Insomnia Stop: 09/01/16 09:53 Last Admin: 07/04/16 20:59 Dose: 10 mg General: no acute distress, cachectic HEENT: atraumatic, normocephalic, PERRLA, EOMI, moist mucous membrane Neck: supple, no thyromegaly Cardiovascular: S1S2, regular Lungs: clear to percussion, crackles Abdomen: soft, no tender, no distended Extremities: no cyanosis, no clubbing, no edema Skin: other (stage 4 decubitus.) - Procedures Procedures: Procedures Procedure Code Date EXCISION OF LEFT FOOT MUSCLE, OPEN APPROACH [id number] 07/01/16 EXCISION OF THORACIC VERTEBRA, OPEN APPROACH [id number] 07/01/16 REMOVAL OF PRESSURE SORE 84699 07/01/16 Infectious Disease Assmt/Plan - Problem List Patient Problems: All Active Problems FAILURE TO THRIVE, G-TUBE EVAL (Acute) - Assessment Assessment: 1. Leukocytos is, still feel septic. as WBC count is increasing on current antibiotic therapy, may consider C diff also. 2. suspect pneumonia. 3. ILD/COPD/Asthma. 4. Dementa. 5. Sacral decubitus stage 4 infected. Recommendation: Will start flagyl and continue vanco and zosyn. Nutritional Asmnt/Malnutr-PDOC - Dietary Evaluation Malnutrition Findings (Please click <Entered> for more info): Nutritional Asmnt/Malnutrition Start: 07/02/16 10: 46 Text: Status: Complete Freq: Document 07/02/16 10:46 DK (Rec: 07/02/16 11:13 [id number]) Nutritional Asmnt/Malnutrition Patient General Information Nutritional Screening High Risk Screening Diagnosis ER: FTT, renal insufficiency dehydration, chronic decubitus ulcers mid back Pertinent Medical Hx/Surgical Hx ER: HTN, CAD, asthma/COPD, arthritis, dementia, BPH, chronic anemia Subjective Information 85 year old male from SNF. Per ER: poor PO and FTT, admitted for evaluation for g tube placement. 07/02 swallow eval: strict NPO, alternative methods of nutrition. Pt with eyes opened, did not make eye contact with RD, both hands with mittens on. Pt appeared thin overall, muscle/fat wasting to temporals, all 4 extremities, clavicles noted. 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 Estimated Nutritional Goals Calories/Kcals/Kg IBW 124lb/56.4kg Kcals Calculated 1410-1692kcal (25-30kcal/kg) Protein g/kg: IBW Protein Calculated 56-78g (1-1.4g/kg) Fluid: ml 1410-1692ml (1ml/kcal) Nutritional Problem 1. Problem Problem Difficulty swallowing related to Etiology failed swallow evaluation aeb Signs/Symptoms: ST recommend strict NPO, alternative methods of nutrition Intervention/Recommendation Comments 1. Recommend Fibersource at goal rate 50ml/hr x 24hrs, providing 1200ml total volume, 1440kcal, 65g protein, 940ml free water. Begin at 25ml/hr for first 24 hrs, monitor tolerance, increase rate by 10ml/hr q6hrs until goal rate of 50ml/hr. 2. Recommend 120ml water flush q6hrs if IV discontinued. Expected Outcomes/Goals Expected Outcomes/Goals 1. PT to meet 100% estimated nutritional needs on tube feeding with tolerance.
[2016-07-05] MEDS: metroNIDAZOLE 500mg/NS 100mL 500 MG/100 ML BAG IV SCH (21:25)
--- NOTE | 2016-07-06 03:52 | Consultation ---
REFERRING PHYSICIAN: Dr. Renato Limon. REASON FOR CONSULTATION: Leukocytosis. HISTORY OF PRESENT ILLNESS: The patient is an 85-year-old male with a past medical history of dementia, hypertension, coronary artery disease, asthma, COPD, osteoporosis, BPH and chronic anemia transferred from [facility] [place] for poor oral intake and failure to thrive. The patient was also found to have stage IV sacral decubitus ulcer badly infected. On initial evaluation, the patient's temperature was 98.1 degree Fahrenheit and WBC count was 14,500. The patient had debridement performed on 07/03/2016. Unfortunately, the patient's WBC count went up to 26,500 and repeat one was 24,300. Along with this, the patient had low grade fever, so ID consult was called for further antibiotic management. However, the patient was receiving Rocephin from admission along with the vancomycin. However, because of increasing WBC count, the patient was started on Zosyn. ID consult was called for further antibiotic management. PAST MEDICAL HISTORY: Includes atrial fibrillation, COPD, asthma, coronary artery disease, hypertension, dementia, osteoporosis, BPH and chronic anemia. PAST SURGICAL HISTORY: Unknown. FAMILY HISTORY: Unknown. SOCIAL HISTORY: The patient lives at a nursing facility, [facility] [place]. Denies any alcohol or drug use. ALLERGIES: NKDA. MEDICATIONS: See medication reconciliation sheet. Antibiotic burgess, the patient is on vancomycin and Zosyn. REVIEW OF SYSTEMS: Unable to give any history. So far, the patient has mild low grade fever. PHYSICAL EXAMINATION: CURRENT VITAL SIGNS: Shows temperature is 98.6 degrees Fahrenheit and WBC count was 86, respirations 18 and blood pressure 116/63. GENERAL: The patient is comfortable lying in the bed, not in acute distress. HEENT: Head is normocephalic and atraumatic. Oral cavity moist, pink tongue. Eyes: Pallor is present. No icterus. PERRLA, EOMI. NECK: Supple. No JVD, no carotid bruit. Trachea in midline. CHEST: Bilateral breath sounds. No crackles or wheezing. HEART: S1 and S2 within normal limits. Regular rhythm. No murmur and no gallop. ABDOMEN: Soft, nontender and nondistended. Bowel sounds present. PEG site is clear. EXTREMITIES: No cyanosis, no clubbing and no edema. NEUROLOGIC: Alert, awake, arousable, but unable to give any history. BACK: The patient has large stage IV, sacral decubitus ulcer. LABORATORY DATA: Lab burgess current lab shows WBC count is 24,300, hemoglobin 9.5, hematocrit 27.9, platelets are 294,000 and neutrophils 88%. Sodium 136, potassium 3.8, chloride 112, bicarbonate is 23, BUN is 14, creatinine 0.5 and glucose is 139. Urinalysis showed trace leukoesterase, wbc's 6-10 and few bacteria. Chest x-ray shows chronic lung changes, increased basal lung markings of chronic etiology, superimposed focal infiltrate cannot be excluded. IMPRESSION: 1. Leukocytosis, most likely reactive to the surgery, cannot rule out underlying infection. Sepsis workup has been performed. 2. Suspect pneumonia. 3. Infected decubitus ulcer, stage IV. 4. Dementia. 5. Hypertension. 6. Coronary artery disease. 7. COPD and asthma. RECOMMENDATIONS: Wound care. I agree with the vancomycin and Zosyn at this time and will follow up the CBC in the morning. Follow up the sepsis workup. Thank you, Dr. Limon for involving me in taking care of this patient. JOB# [id number] NINA
[2016-07-06] MEDS: metroNIDAZOLE 500mg/NS 100mL 500 MG/100 ML BAG IV SCH ×3 (04:56→20:44)
[2016-07-06 07:20] LABS: HEMATOCRIT 31.2 % (39.0-49.0); HEMOGLOBIN 10.6 gm/dL (12.6-17.4); MEAN CELL VOLUME 95.4 fl (80-99); MEAN CORPUSCULAR HEMOGLOBIN 32.4 pg (27.0-31.0); MEAN PLATELET VOLUME 9.4 fl; RED BLOOD COUNT 3.27 Mil/cmm (3.80-5.80); RED CELL DISTRIBUTION WIDTH 15.6 % (11.5-20.0)
[2016-07-06 07:25] LABS: ANION GAP 8.1 (7.0-16.0); BUN - UREA NITROGEN 16 mg/dL (7-25); CALCIUM SERUM 7.7 mg/dL (8.6-10.3); CARBON DIOXIDE 20.8 mEq/L (21.0-31.0); CHLORIDE 116 mEq/L (98-107); CREATININE - SERUM 0.8 mg/dL (0.7-1.3); GLUCOSE 98 mg/dL (70-105); MAGNESIUM 2.2 mg/dL (1.9-2.7); PLATELET COUNT 129 Th/cmm (150-400); POTASSIUM SERUM 3.9 mEq/L (3.5-5.1); SODIUM SERUM 141 mEq/L (136-145); WHITE BLOOD COUNT 31.9 Th/cmm (4.8-10.8)
[2016-07-06] MEDS: HYDROmorphone 1 mg/mL 1mL Syr IVP PRN ×3 (07:46→20:44)
[2016-07-06 08:14] LABS: BAND NEUTROPHILE 21 % (0-10); NEUTROPHILS 69 % (40-80); TOTAL CELLS COUNTED 100
[2016-07-06 08:15] LABS: ANISOCYTOSIS 1+; PLATELET ESTIMATE DECREASED PLATELETS (NORMAL); PLATELET MORPHOLOGY NORMAL (NORMAL)
[2016-07-06] MEDS: Venelex 60gm Tube TP SCH (08:43)
[2016-07-06] MEDS: Meropenem 1 GM in Sodium Chloride 0.9% 100 ML IV SCH ×2 (11:06→21:57)
--- NOTE | 2016-07-06 11:10 | Diagnostic Imaging Report ---
Radionuclide 3 phase bone scan (sacrum) HISTORY: Osteomyelitis 21.5 mCi technetium MDP was using the exam. The exam is very limited and extremely suboptimal due to patient contracture and difficulty in positioning. Initial blood flow and subsequent blood pool and delayed images were obtained. The initial blood flow images do not demonstrate any significant abnormal foci or regions of increased activity. Delayed images are very limited as noted above. Focal increased activity is noted that appears related to the left hip region probably associated with surgical changes and a fracture. No obvious increased activity originates from the sacral region. IMPRESSION: 1. Vertically Limited/suboptimal exam due to patient contracture and difficulty in positioning 2. Increased activity on delayed images that appears to originate from the left hip region consistent with patient's fracture and surgical changes. 3. No obvious abnormal activity about the sacrum
--- NOTE | 2016-07-06 11:12 | Diagnostic Imaging Report ---
Sacrum/coccyx (3 views) HISTORY: Osteomyelitis, pain The views of burry limited and suboptimal due to difficulty in patient positioning. No obvious acute bony abnormalities are seen in the region of the sacrum or coccyx. Specifically, no obvious destructive bony changes. Mild to moderately displaced left intratrochanteric fracture with orthopedic fixation rods and screws noted. Severe degenerative changes seen in the visualized lower lumbar spine. Extensive atherosclerotic vascular calcification noted IMPRESSION: 1. Very Limited/suboptimal exam due to difficulty in patient positioning 2. No obvious destructive bony changes about the sacral region 3. Mildly displaced left intertrochanteric fracture with surgical changes 4. Severe degenerative changes within the visualized lower lumbar spine 5. Atherosclerotic vascular changes
--- NOTE | 2016-07-06 15:17 | General Progress Note ---
Subjective - Review of Systems Service Date: 07/06/16 Events since last encounter: persistent leukocytosis stage 4ulcer on wound vac Objective - Results Result Diagrams: 07/06/16 06:06 07/06/16 06:06 Recent Labs: Laboratory Last Values WBC 31.9 Th/cmm (4.8-10.8) H* 07/06/16 06:06 RBC 3.27 Mil/cmm (3.80-5.80) L 07/06/16 06:06 Hgb 10.6 gm/dL (12.6-17.4) L 07/06/16 06:06 Hct 31.2 % (39.0-49.0) L 07/06/16 06:06 MCV 95.4 fl (80-99) 07/06/16 06:06 MCH 32.4 pg (27.0-31.0) H 07/06/16 06:06 MCHC Differential 34.0 pg (28.0-36.0) 07/06/16 06:06 RDW 15.6 % (11.5-20.0) 07/06/16 06:06 Plt Count 129 Th/cmm (150-400) L D 07/06/16 06:06 MPV 9.4 fl 07/06/16 06:06 Band Neutrophils % 21 % (0-10) H 07/06/16 06:06 Neutrophils (Manual) 69 % (40-80) 07/06/16 06:06 Lymphocytes 5 % (20-50) L 07/06/16 06:06 Monocytes 5 % (2-10) 07/06/16 06:06 Metamyelocytes 1 % (0-0) H 07/04/16 05:41 Platelet Estimate DECREASED PLATELETS (NORMAL) 07/06/16 06:06 Platelet Morphology NORMAL (NORMAL) 07/06/16 06:06 Anisocytosis 1+ 07/06/16 06:06 RBC Morph Micro Appear ABNORMAL (NORMAL) 07/06/16 06:06 ESR 20 mm/hr (0-20) 07/05/16 06:16 PT 12.5 SECONDS (9.5-11.5) H 07/03/16 06:29 INR 1.19 (0.5-1.4) 07/03/16 06:29 PTT (Actin FS) 31.5 SECONDS (26.0-38.0) 07/02/16 06:00 Sodium 141 mEq/L (136-145) 07/06/16 06:06 Potassium 3.9 mEq/L (3.5-5.1) 07/06/16 06:06 Chloride 116 mEq/L (98-107) H 07/06/16 06:06 Carbon Dioxide 20.8 mEq/L (21.0-31.0) L 07/06/16 06:06 Anion Gap 8.1 (7.0-16.0) 07/06/16 06:06 BUN 16 mg/dL (7-25) 07/06/16 06:06 Creatinine 0.8 mg/dL (0.7-1.3) 07/06/16 06:06 Est GFR ( Amer) TNP 07/06/16 06:06 Est GFR (Non-Af Amer) TNP 07/06/16 06:06 BUN/Creatinine Ratio 20.0 07/06/16 06:06 Glucose 98 mg/dL (70-105) 07/06/16 06:06 Whole Bld Lactic Acid 1.61 mmol/L (0.60-1.99) 07/04/16 08:50 Calcium 7.7 mg/dL (8.6-10.3) L 07/06/16 06:06 Magnesium 2.2 mg/dL (1.9-2.7) 07/06/16 06:06 Total Bilirubin 0.5 mg/dL (0.3-1.0) 07/04/16 08:50 AST 27 U/L (13-39) 07/04/16 08:50 ALT 15 U/L (7-52) 07/04/16 08:50 Alkaline Phosphatase 82 U/L (34-104) 07/04/16 08:50 C-Reactive Protein 8.9 mg/dL (0.0-0.9) H 07/05/16 06:16 Total Protein 4.9 gm/dL (6.0-8.3) L 07/04/16 08:50 Albumin 2.3 gm/dL (4.2-5.5) L 07/04/16 08:50 Globulin 2.6 gm/dL 07/04/16 08:50 Albumin/Globulin Ratio 0.9 (1.0-1.8) L 07/04/16 08:50 Prealbumin 7 mg/dL (9-32) L 07/02/16 06:00 Triglycerides 90 mg/dL (<150) 07/02/16 06:00 Cholesterol 103 mg/dL (<200) 07/02/16 06:00 LDL Cholesterol Direct 55 mg/dL (75-193) L 07/02/16 06:00 HDL Cholesterol 32 mg/dL (23-92) 07/02/16 06:00 TSH 2.42 uIU/ml (0.34-5.60) 07/02/16 06:00 Urine Source [place] 07/04/16 11:55 Urine Color YELLOW 07/04/16 11:55 Urine Clarity SL. CLOUDY (CLEAR) 07/04/16 11:55 Urine pH 6.5 07/04/16 11:55 Ur Specific [place] 1.025 (1.005-1.030) 07/04/16 11:55 Urine Protein 100 mg/dL (NEGATIVE) H 07/04/16 11:55 Urine Glucose (UA) NEGATIVE mg/dL (NEGATIVE) 07/04/16 11:55 Urine Ketones NEGATIVE mg/dL (NEGATIVE) 07/04/16 11:55 Urine Blood SMALL (NEGATIVE) H 07/04/16 11:55 Urine Nitrate NEGATIVE (NEGATIVE) 07/04/16 11:55 Urine Bilirubin SMALL (NEGATIVE) H 07/04/16 11:55 Urine Urobilinogen 0.2 E.U./dL (0.2 - 1.0) 07/04/16 11:55 Ur Leukocyte Esterase TRACE (NEGATIVE) H 07/04/16 11:55 Urine RBC 4-7 /hpf (0-5) 07/04/16 11:55 Urine WBC 6-10 /hpf (0-5) H 07/04/16 11:55 Ur Epithelial Cells OCCASIONAL /lpf (FEW) 07/04/16 11:55 Calcium Oxalate Crystal FEW /hpf 07/01/16 15:40 Urine Bacteria FEW /hpf (NONE SEEN) 07/04/16 11:55 Vancomycin Trough 12.2 ug/mL (10-20) 07/06/16 10:56 Random Vancomycin 7.8 ug/mL (5.0-40.0) 07/04/16 05:41 - Physical Exam Vitals and I&O: Vital Signs Temp 97.2 F 07/06/16 12:00 Pulse 94 07/06/16 12:00 Resp 19 07/06/16 12:00 BP 105/63 07/06/16 12:00 Pulse Ox 98 07/06/16 12:00 Intake & Output 07/05/16 07/06/16 07/06/16 18:59 06:59 18:59 Intake Total 1068.75 970 Output Total 800 Balance 1068.75 170 Intake: Intake, IV Amount 1068.75 250 Piperacillin Sodium/ 50 50 Tazobact 3.375 gm In Sodium Chloride 0.9% 50 ml @ 100 mls/hr IV Q6HR [facility] Rx#:[id number] Vancomycin HCl 1.25 gm In 250 Sodium Chloride 0.9% 250 ml @ 165 mls/hr IV Q24H [facility] Rx#:[id number] metroNIDAZOLE 500mg/NS 200 100mL 500 mg In 100 ml @ 100 mls/hr IV Q8HR [facility] Rx #:[id number] Tube Feeding 600 Other 120 Output: Urine 800 Other: # Bowel Movements 0 Stool Characteristics Soft Soft Soft Brown Brown Brown Active Medications: Current Medications Acetaminophen (Tylenol) 650 mg PO Q6H PRN PRN Reason: MILD PAIN OR ELEVATED TEMP Last Admin: 07/05/16 21:25 Dose: 650 mg Albuterol/Ipratropium (Duoneb Neb) 3 ml HHN Q4H PRN PRN Reason: Wheezing Stop: 08/30/16 20:49 Amiodarone HCl (Cordarone) 200 mg PO DAILY [facility] Stop: 08/31/16 08:59 Last Admin: 07/06/16 08:42 Dose: 200 mg Bacitracin (Baciquent) 1 appl TP DAILY [facility] Stop: 08/31/16 08:59 Last Admin: 07/06/16 08:43 Dose: 1 appl Hydromorphone HCl (Dilaudid) 0.5 mg IVP Q4H PRN PRN Reason: Pain (Severe) Stop: 08/30/16 20:59 Last Admin: 07/06/16 15:05 Dose: 0.5 mg Sodium Chloride (Nacl 0.45%) 1,000 mls @ 75 mls/hr IV .[id number] [facility] Stop: 09/03/16 09:29 Last Admin: 07/05/16 11:16 Dose: 75 mls/hr Metronidazole (Flagyl) 500 mg in 100 mls @ 100 mls/hr IV Q8HR [facility] Stop: 09/03/16 20:59 Last Admin: 07/06/16 13:29 Dose: 100 mls/hr Meropenem 1 gm/ Sodium (Chloride) 100 mls @ 100 mls/hr IV Q12H [facility] Stop: 09/04/16 09:59 Last Admin: 07/06/16 11:06 Dose: 100 mls/hr Vancomycin HCl 1.25 gm/ Sodium (Chloride) 250 mls @ 165 mls/hr IV Q24H [facility] Stop: 09/04/16 12:59 Last Admin: 07/06/16 13:30 Dose: 165 mls/hr Miscellaneous (Vancomycin Iv Per Pharmacy) 1 ea MC DAILY [facility] Stop: 09/02/16 08:59 Rivaroxaban (Xarelto) 10 mg PO DAILY [facility] Stop: 08/31/16 08:59 Last Admin: 07/06/16 08:42 Dose: 10 mg Zolpidem Tartrate (Ambien) 10 mg GT HS PRN PRN Reason: Insomnia Stop: 09/01/16 09:53 Last Admin: 07/05/16 21:25 Dose: 10 mg - Procedures Procedures: Procedures Procedure Code Date EXCISION OF LEFT FOOT MUSCLE, OPEN APPROACH [id number] 07/01/16 EXCISION OF THORACIC VERTEBRA, OPEN APPROACH [id number] 07/01/16 REMOVAL OF PRESSURE SORE 96876 07/01/16 Assessment/Plan - Problem List Patient Problems: All Active Problems FAILURE TO THRIVE, G-TUBE EVAL (Acute) Nutritional Asmnt/Malnutr-PDOC - Dietary Evaluation Malnutrition Findings (Please click <Entered> for more info): Nutritional Asmnt/Malnutrition Start: 07/02/16 10: 46 Text: Status: Complete Freq: Document 07/02/16 10:46 GSUN (Rec: 07/02/16 11:13 DK [email or web address]) Nutritional Asmnt/Malnutrition Patient General Information Nutritional Screening High Risk Screening Diagnosis ER: FTT, renal insufficiency dehydration, chronic decubitus ulcers mid back Pertinent Medical Hx/Surgical Hx ER: HTN, CAD, asthma/COPD, arthritis, dementia, BPH, chronic anemia Subjective Information 85 year old male from SNF. Per ER: poor PO and FTT, admitted for evaluation for g tube placement. 07/02 swallow eval: strict NPO, alternative methods of nutrition. Pt with eyes opened, did not make eye contact with RD, both hands with mittens on. Pt appeared thin overall, muscle/fat wasting to temporals, all 4 extremities, clavicles noted. 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 Estimated Nutritional Goals Calories/Kcals/Kg IBW 124lb/56.4kg Kcals Calculated 1410-1692kcal (25-30kcal/kg) Protein g/kg: IBW Protein Calculated 56-78g (1-1.4g/kg) Fluid: ml 1410-1692ml (1ml/kcal) Nutritional Problem 1. Problem Problem Difficulty swallowing related to Etiology failed swallow evaluation aeb Signs/Symptoms: ST recommend strict NPO, alternative methods of nutrition Intervention/Recommendation Comments 1. Recommend Fibersource at goal rate 50ml/hr x 24hrs, providing 1200ml total volume, 1440kcal, 65g protein, 940ml free water. Begin at 25ml/hr for first 24 hrs, monitor tolerance, increase rate by 10ml/hr q6hrs until goal rate of 50ml/hr. 2. Recommend 120ml water flush q6hrs if IV discontinued. Expected Outcomes/Goals Expected Outcomes/Goals 1. PT to meet 100% estimated nutritional needs on tube feeding with tolerance.
[2016-07-06] MEDS: Sodium Chloride 0.45% 1,000 ML IV SCH (20:43)
[2016-07-07] MEDS ORDERED: metroNIDAZOLE 500mg/NS 100mL 500 MG/100 ML BAG IV SCH (05:00)
[2016-07-07] MEDS: metroNIDAZOLE 500mg/NS 100mL 500 MG/100 ML BAG IV SCH ×3 (05:00→20:15)
[2016-07-07 07:05] LABS: HEMATOCRIT 29.9 % (39.0-49.0); HEMOGLOBIN 10.2 gm/dL (12.6-17.4); MEAN CELL VOLUME 95.7 fl (80-99); MEAN CORPUSCULAR HEMOGLOBIN 32.7 pg (27.0-31.0); MEAN CORPUSCULAR HGB CONC 34.2 pg (28.0-36.0); MEAN PLATELET VOLUME 8.2 fl; RED BLOOD COUNT 3.13 Mil/cmm (3.80-5.80); RED CELL DISTRIBUTION WIDTH 15.4 % (11.5-20.0)
[2016-07-07 07:22] LABS: ANION GAP 6.4 (7.0-16.0); BUN - UREA NITROGEN 24 mg/dL (7-25); CALCIUM SERUM 7.5 mg/dL (8.6-10.3); CARBON DIOXIDE 22.2 mEq/L (21.0-31.0); CHLORIDE 116 mEq/L (98-107); GLUCOSE 129 mg/dL (70-105); POTASSIUM SERUM 3.6 mEq/L (3.5-5.1); SODIUM SERUM 141 mEq/L (136-145)
[2016-07-07 07:34] LABS: WHITE BLOOD COUNT 25.9 Th/cmm (4.8-10.8)
[2016-07-07 07:37] LABS: PLATELET COUNT 319 Th/cmm (150-400)
[2016-07-07] MEDS: Albuterol/Ipratropium Neb 3 ML AERS HHN PRN (07:57)
[2016-07-07 08:03] LABS: BAND NEUTROPHILE 13 % (0-10); NEUTROPHILS 70 % (40-80); TOTAL CELLS COUNTED 100
[2016-07-07 08:04] LABS: PLATELET ESTIMATE ADEQUATE (NORMAL); TOXIC GRANULATION 3+
[2016-07-07] MEDS: Venelex 60gm Tube TP SCH (08:39)
[2016-07-07] MEDS: Meropenem 1 GM in Sodium Chloride 0.9% 100 ML IV SCH ×2 (10:54→21:19)
[2016-07-07] MEDS: HYDROmorphone 1 mg/mL 1mL Syr IVP PRN ×3 (10:54→22:57)
[2016-07-07] MEDS: Sodium Chloride 0.45% 1,000 ML IV SCH (23:02)
--- NOTE | 2016-07-07 23:53 | Infectious Disease Prog Note ---
Infectious Disease Subjective - Review of Systems Service Date: 07/07/16 Subjective: There is no fever. Infectious Disease Objective - Results Result Diagrams: 07/07/16 06:31 07/07/16 06:31 Recent Labs: Laboratory Last Values WBC 25.9 Th/cmm (4.8-10.8) H* 07/07/16 06:31 RBC 3.13 Mil/cmm (3.80-5.80) L 07/07/16 06:31 Hgb 10.2 gm/dL (12.6-17.4) L 07/07/16 06:31 Hct 29.9 % (39.0-49.0) L 07/07/16 06:31 MCV 95.7 fl (80-99) 07/07/16 06:31 MCH 32.7 pg (27.0-31.0) H 07/07/16 06:31 MCHC Differential 34.2 pg (28.0-36.0) 07/07/16 06:31 RDW 15.4 % (11.5-20.0) 07/07/16 06:31 Plt Count 319 Th/cmm (150-400) D 07/07/16 06:31 MPV 8.2 fl 07/07/16 06:31 Band Neutrophils % 13 % (0-10) H 07/07/16 06:31 Neutrophils (Manual) 70 % (40-80) 07/07/16 06:31 Lymphocytes 5 % (20-50) L 07/07/16 06:31 Monocytes 12 % (2-10) H 07/07/16 06:31 Metamyelocytes 1 % (0-0) H 07/04/16 05:41 Toxic Granulation 3+ 07/07/16 06:31 Platelet Estimate A[place]QU[place] (NORMAL) 07/07/16 06:31 Platelet Morphology NORMAL (NORMAL) 07/06/16 06:06 Anisocytosis 1+ 07/06/16 06:06 RBC Morph Micro Appear ABNORMAL (NORMAL) 07/06/16 06:06 ESR 20 mm/hr (0-20) 07/05/16 06:16 PT 12.5 SECONDS (9.5-11.5) H 07/03/16 06:29 INR 1.19 (0.5-1.4) 07/03/16 06:29 PTT (Actin FS) 31.5 SECONDS (26.0-38.0) 07/02/16 06:00 Sodium 141 mEq/L (136-145) 07/07/16 06:31 Potassium 3.6 mEq/L (3.5-5.1) 07/07/16 06:31 Chloride 116 mEq/L (98-107) H 07/07/16 06:31 Carbon Dioxide 22.2 mEq/L (21.0-31.0) 07/07/16 06:31 Anion Gap 6.4 (7.0-16.0) L 07/07/16 06:31 BUN 24 mg/dL (7-25) 07/07/16 06:31 Creatinine 1.0 mg/dL (0.7-1.3) 07/07/16 06:31 Est GFR ( Amer) TNP 07/07/16 06:31 Est GFR (Non-Af Amer) TNP 07/07/16 06:31 BUN/Creatinine Ratio 24.0 07/07/16 06:31 Glucose 129 mg/dL (70-105) H 07/07/16 06:31 Whole Bld Lactic Acid 1.61 mmol/L (0.60-1.99) 07/04/16 08:50 Calcium 7.5 mg/dL (8.6-10.3) L 07/07/16 06:31 Magnesium 2.2 mg/dL (1.9-2.7) 07/06/16 06:06 Total Bilirubin 0.5 mg/dL (0.3-1.0) 07/04/16 08:50 AST 27 U/L (13-39) 07/04/16 08:50 ALT 15 U/L (7-52) 07/04/16 08:50 Alkaline Phosphatase 82 U/L (34-104) 07/04/16 08:50 C-Reactive Protein 8.9 mg/dL (0.0-0.9) H 07/05/16 06:16 Total Protein 4.9 gm/dL (6.0-8.3) L 07/04/16 08:50 Albumin 2.3 gm/dL (4.2-5.5) L 07/04/16 08:50 Globulin 2.6 gm/dL 07/04/16 08:50 Albumin/Globulin Ratio 0.9 (1.0-1.8) L 07/04/16 08:50 Prealbumin 7 mg/dL (9-32) L 07/02/16 06:00 Triglycerides 90 mg/dL (<150) 07/02/16 06:00 Cholesterol 103 mg/dL (<200) 07/02/16 06:00 LDL Cholesterol Direct 55 mg/dL (75-193) L 07/02/16 06:00 HDL Cholesterol 32 mg/dL (23-92) 07/02/16 06:00 TSH 2.42 uIU/ml (0.34-5.60) 07/02/16 06:00 Urine Source [place] 07/04/16 11:55 Urine Color YELLOW 07/04/16 11:55 Urine Clarity SL. CLOUDY (CLEAR) 07/04/16 11:55 Urine pH 6.5 07/04/16 11:55 Ur Specific [place] 1.025 (1.005-1.030) 07/04/16 11:55 Urine Protein 100 mg/dL (NEGATIVE) H 07/04/16 11:55 Urine Glucose (UA) NEGATIVE mg/dL (NEGATIVE) 07/04/16 11:55 Urine Ketones NEGATIVE mg/dL (NEGATIVE) 07/04/16 11:55 Urine Blood SMALL (NEGATIVE) H 07/04/16 11:55 Urine Nitrate NEGATIVE (NEGATIVE) 07/04/16 11:55 Urine Bilirubin SMALL (NEGATIVE) H 07/04/16 11:55 Urine Urobilinogen 0.2 E.U./dL (0.2 - 1.0) 07/04/16 11:55 Ur Leukocyte Esterase TRACE (NEGATIVE) H 07/04/16 11:55 Urine RBC 4-7 /hpf (0-5) 07/04/16 11:55 Urine WBC 6-10 /hpf (0-5) H 07/04/16 11:55 Ur Epithelial Cells OCCASIONAL /lpf (FEW) 07/04/16 11:55 Calcium Oxalate Crystal FEW /hpf 07/01/16 15:40 Urine Bacteria FEW /hpf (NONE SEEN) 07/04/16 11:55 Stool Leukocyte FEW WBC SEEN 07/07/16 05:15 Vancomycin Trough 12.2 ug/mL (10-20) 07/06/16 10:56 Random Vancomycin 7.8 ug/mL (5.0-40.0) 07/04/16 05:41 - Physical Exam Vitals and I&O: Vital Signs Temp 97.7 F 07/07/16 20:00 Pulse 84 07/07/16 20:00 Resp 20 07/07/16 20:00 BP 116/66 07/07/16 20:00 Pulse Ox 100 07/07/16 20:00 Intake & Output 07/07/16 07/07/16 07/08/16 06:59 18:59 06:59 Intake Total 1020 1650 520 Output Total 725 380 Balance 295 1270 520 Intake: Intake, IV Amount 300 1200 200 Meropenem 1 gm In Sodium 100 100 100 Chloride 0.9% 100 ml @ 100 mls/hr IV Q12H [facility] Rx #:[id number] Sodium Chloride 0.45% 1, 1000 000 ml @ 75 mls/hr IV . [id number] [facility] Rx#:[id number] metroNIDAZOLE 500mg/NS 200 100 100 100mL 500 mg In 100 ml @ 100 mls/hr IV Q8HR [facility] Rx #:[id number] Oral 0 Tube Feeding 720 120 Other 450 200 Output: Urine 525 380 Other 200 Other: # Voids 400 # Bowel Movements 1 1 Stool Characteristics Soft Soft Formed Formed Active Medications: Current Medications Acetaminophen (Tylenol) 650 mg PO Q6H PRN PRN Reason: MILD PAIN OR ELEVATED TEMP Last Admin: 07/07/16 20:52 Dose: 650 mg Albuterol/Ipratropium (Duoneb Neb) 3 ml HHN Q4H PRN PRN Reason: Wheezing Stop: 08/30/16 20:49 Last Admin: 07/07/16 07:57 Dose: 3 ml Amiodarone HCl (Cordarone) 200 mg PO DAILY [facility] Stop: 08/31/16 08:59 Last Admin: 07/07/16 08:38 Dose: 200 mg Bacitracin (Baciquent) 1 appl TP DAILY [facility] Stop: 08/31/16 08:59 Last Admin: 07/07/16 15:15 Dose: 1 appl Hydromorphone HCl (Dilaudid) 0.5 mg IVP Q4H PRN PRN Reason: Pain (Severe) Stop: 08/30/16 20:59 Last Admin: 07/07/16 22:57 Dose: 0.5 mg Sodium Chloride (Nacl 0.45%) 1,000 mls @ 75 mls/hr IV .[id number] [facility] Stop: 09/03/16 09:29 Last Admin: 07/07/16 23:02 Dose: 75 mls/hr Metronidazole (Flagyl) 500 mg in 100 mls @ 100 mls/hr IV Q8HR [facility] Stop: 09/03/16 20:59 Last Infusion: 07/07/16 21:15 Dose: Infused Meropenem 1 gm/ Sodium (Chloride) 100 mls @ 100 mls/hr IV Q12H [facility] Stop: 09/04/16 09:59 Last Infusion: 07/07/16 22:19 Dose: Infused Vancomycin HCl 1.25 gm/ Sodium (Chloride) 250 mls @ 165 mls/hr IV Q24H [facility] Stop: 09/04/16 12:59 Last Admin: 07/07/16 15:11 Dose: 165 mls/hr Miscellaneous (Vancomycin Iv Per Pharmacy) 1 ea MC DAILY [facility] Stop: 09/02/16 08:59 Rivaroxaban (Xarelto) 10 mg PO DAILY [facility] Stop: 08/31/16 08:59 Last Admin: 07/07/16 08:38 Dose: 10 mg Zolpidem Tartrate (Ambien) 10 mg GT HS PRN PRN Reason: Insomnia Stop: 09/01/16 09:53 Last Admin: 07/07/16 20:52 Dose: 10 mg General: no acute distress, cachectic HEENT: atraumatic, normocephalic, PERRLA, EOMI Neck: supple, no thyromegaly Cardiovascular: S1S2, regular Lungs: clear to auscultation bilaterally, clear to percussion Abdomen: soft, no tender, no distended Extremities: no cyanosis, no clubbing, no edema Neurological: awake Skin: other (sacral wound) - Procedures Procedures: Procedures Procedure Code Date EXCISION OF LEFT FOOT MUSCLE, OPEN APPROACH [id number] 07/01/16 EXCISION OF THORACIC VERTEBRA, OPEN APPROACH [id number] 07/01/16 REMOVAL OF PRESSURE SORE 83439 07/01/16 Infectious Disease Assmt/Plan - Problem List Patient Problems: All Active Problems FAILURE TO THRIVE, G-TUBE EVAL (Acute) - Assessment Assessment: 1. Leukocytos is, still feel septic. as WBC count is increasing on current antibiotic therapy, may consider C diff also. 2. suspect pneumonia. 3. ILD/COPD/Asthma. 4. Dementa. 5. Sacral decubitus stage 4 infected. 6. Colitis? ischemic colitis, r/o CDAC. Pneumotosis coli. 7. Pneumonia, hazy multifocal infiltrate in Left lung. Recommendation: Will Continue flagyl and continue vanco and meropenem. Nutritional Asmnt/Malnutr-PDOC - Dietary Evaluation Malnutrition Findings (Please click <Entered> for more info): Nutritional Asmnt/Malnutrition Start: 07/02/16 10: 46 Text: Status: Complete Freq: Document 07/02/16 10:46 GSUN (Rec: 07/02/16 11:13 GSUN [email or web address]) Nutritional Asmnt/Malnutrition Patient General Information Nutritional Screening High Risk Screening Diagnosis ER: FTT, renal insufficiency dehydration, chronic decubitus ulcers mid back Pertinent Medical Hx/Surgical Hx ER: HTN, CAD, asthma/COPD, arthritis, dementia, BPH, chronic anemia Subjective Information 85 year old male from SNF. Per ER: poor PO and FTT, admitted for evaluation for g tube placement. 07/02 swallow eval: strict NPO, alternative methods of nutrition. Pt with eyes opened, did not make eye contact with RD, both hands with mittens on. Pt appeared thin overall, muscle/fat wasting to temporals, all 4 extremities, clavicles noted. 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 Estimated Nutritional Goals Calories/Kcals/Kg IBW 124lb/56.4kg Kcals Calculated 1410-1692kcal (25-30kcal/kg) Protein g/kg: IBW Protein Calculated 56-78g (1-1.4g/kg) Fluid: ml 1410-1692ml (1ml/kcal) Nutritional Problem 1. Problem Problem Difficulty swallowing related to Etiology failed swallow evaluation aeb Signs/Symptoms: ST recommend strict NPO, alternative methods of nutrition Intervention/Recommendation Comments 1. Recommend Fibersource at goal rate 50ml/hr x 24hrs, providing 1200ml total volume, 1440kcal, 65g protein, 940ml free water. Begin at 25ml/hr for first 24 hrs, monitor tolerance, increase rate by 10ml/hr q6hrs until goal rate of 50ml/hr. 2. Recommend 120ml water flush q6hrs if IV discontinued. Expected Outcomes/Goals Expected Outcomes/Goals 1. PT to meet 100% estimated nutritional needs on tube feeding with tolerance.
[2016-07-08] MEDS: HYDROmorphone 1 mg/mL 1mL Syr IVP PRN ×3 (03:24→21:29)
[2016-07-08] MEDS: metroNIDAZOLE 500mg/NS 100mL 500 MG/100 ML BAG IV SCH ×3 (04:41→20:50)
[2016-07-08 06:31] LABS: ANION GAP 4.8 (7.0-16.0); BUN - UREA NITROGEN 26 mg/dL (7-25); CALCIUM SERUM 7.5 mg/dL (8.6-10.3); CARBON DIOXIDE 25.1 mEq/L (21.0-31.0); CHLORIDE 116 mEq/L (98-107); GLUCOSE 127 mg/dL (70-105); POTASSIUM SERUM 3.9 mEq/L (3.5-5.1); SODIUM SERUM 142 mEq/L (136-145)
[2016-07-08 06:48] LABS: HEMATOCRIT 28.3 % (39.0-49.0); HEMOGLOBIN 9.5 gm/dL (12.6-17.4); MEAN CELL VOLUME 96.7 fl (80-99); MEAN CORPUSCULAR HEMOGLOBIN 32.4 pg (27.0-31.0); MEAN CORPUSCULAR HGB CONC 33.6 pg (28.0-36.0); MEAN PLATELET VOLUME 8.7 fl; PLATELET COUNT 281 Th/cmm (150-400); RED BLOOD COUNT 2.93 Mil/cmm (3.80-5.80); RED CELL DISTRIBUTION WIDTH 15.6 % (11.5-20.0)
[2016-07-08 07:04] LABS: WHITE BLOOD COUNT 17.9 Th/cmm (4.8-10.8)
[2016-07-08 07:27] LABS: EOSINOPHIL 3 % (0-5); NEUTROPHILS 75 % (40-80); TOTAL CELLS COUNTED 100
[2016-07-08 07:28] LABS: PLATELET MORPHOLOGY NORMAL (NORMAL)
[2016-07-08 07:29] LABS: PLATELET ESTIMATE ADEQUATE (NORMAL)
[2016-07-08 07:31] LABS: BAND NEUTROPHILE 5 % (0-10)
[2016-07-08] MEDS: Albuterol/Ipratropium Neb 3 ML AERS HHN PRN ×2 (08:15→11:25)
[2016-07-08] MEDS: Venelex 60gm Tube TP SCH (08:30)
[2016-07-08] MEDS: Meropenem 1 GM in Sodium Chloride 0.9% 100 ML IV SCH ×2 (09:25→21:31)
--- NOTE | 2016-07-08 09:28 | Diagnostic Imaging Report ---
CT scan of the chest without intravenous contrast HISTORY: Leukocytosis, shortness of breath Total DLP equals 135 CTDI equals 4.5 Axial sections were obtained from a level above the clavicles down to level below the diaphragm. The exam is very limited and suboptimal due to extensive patient motion artifact. There is evidence of a moderate right pleural effusion. Parenchymal density noted in the right lower lobe consistent with atelectasis and/or consolidation. Somewhat multifocal hazy infiltrates noted in the left lung. Coronary artery and atherosclerotic vascular calcification noted. No abnormal mediastinal masses. Suboptimal delineation of the major hilar structures. IMPRESSION: 1. Very limited/suboptimal exam due to patient motion 2. Moderate right and small left pleural effusion 3. Parenchymal density right lower lobe consistent with atelectasis and/or consolidation 4. Hazy multifocal infiltrates within the left lung 5. Evidence of coronary artery and atherosclerotic vascular calcification
--- NOTE | 2016-07-08 09:33 | Diagnostic Imaging Report ---
CT scan abdomen and pelvis without intravenous contrast HISTORY: Pain, leukocytosis Total DLP equals 702 CTDI equals 16.1 Axial sections were obtained from the left foot process down to the pubic symphysis. The exam is very limited suboptimal due to patient motion. No definite focal abnormalities seen within the liver. The spleen appears normal. No focal abnormality seen in the region of the pancreas. Evidence of multiple gallstones seen. Sonography would provide additional assessment. No focal renal lesions. No hydronephrosis. Atherosclerotic calcination noted throughout the abdominal aorta and iliac vessels. There appears to be generalized dilatation of the colon with questionable wall thickening. Mild small bowel dilatation also noted. Question pneumatosis intestinalis. Colitis including ischemic bowel cannot be excluded. Clinical correlation is needed. Degenerative changes noted throughout the spine along with compression involving multiple vertebrae. Surgical changes noted about the left hip. There is generalized haziness throughout the subcutaneous tissues of the abdomen and pelvis reflecting anasarca. IMPRESSION: 1. Very Limited/suboptimal exam due to patient motion 2. Suggestion of generalized dilatation of the large bowel along with mild small bowel dilatation. Question pneumatosis intestinalis. Colitis including ischemic change cannot be excluded. Clinical correlation is needed. 3. Findings suggesting cholelithiasis. Ultrasound exam would provide additional assessment. 4. Anasarca 5. Severe degenerative changes throughout the spine with compression involving several vertebrae 6. Gastrostomy tube
--- NOTE | 2016-07-08 09:38 | General Progress Note ---
Subjective - Review of Systems Service Date: 07/08/16 Events since last encounter: question of abdominal pain CT scan - pneumatosis, bowel dilatation PE difficult - possible tenderness Plan Gallium scan Objective - Results Result Diagrams: 07/08/16 05:57 07/08/16 05:57 Recent Labs: Laboratory Last Values WBC 17.9 Th/cmm (4.8-10.8) H D 07/08/16 05:57 RBC 2.93 Mil/cmm (3.80-5.80) L 07/08/16 05:57 Hgb 9.5 gm/dL (12.6-17.4) L 07/08/16 05:57 Hct 28.3 % (39.0-49.0) L 07/08/16 05:57 MCV 96.7 fl (80-99) 07/08/16 05:57 MCH 32.4 pg (27.0-31.0) H 07/08/16 05:57 MCHC Differential 33.6 pg (28.0-36.0) 07/08/16 05:57 RDW 15.6 % (11.5-20.0) 07/08/16 05:57 Plt Count 281 Th/cmm (150-400) 07/08/16 05:57 MPV 8.7 fl 07/08/16 05:57 Band Neutrophils % 5 % (0-10) 07/08/16 05:57 Neutrophils (Manual) 75 % (40-80) 07/08/16 05:57 Lymphocytes 10 % (20-50) L 07/08/16 05:57 Monocytes 7 % (2-10) 07/08/16 05:57 Eosinophils 3 % (0-5) 07/08/16 05:57 Metamyelocytes 1 % (0-0) H 07/04/16 05:41 Toxic Granulation 3+ 07/07/16 06:31 Platelet Estimate ADEQUATE (NORMAL) 07/08/16 05:57 Platelet Morphology NORMAL (NORMAL) 07/08/16 05:57 Anisocytosis 1+ 07/06/16 06:06 RBC Morph Micro Appear NORMAL (NORMAL) 07/08/16 05:57 ESR 20 mm/hr (0-20) 07/05/16 06:16 PT 12.5 SECONDS (9.5-11.5) H 07/03/16 06:29 INR 1.19 (0.5-1.4) 07/03/16 06:29 PTT (Actin FS) 31.5 SECONDS (26.0-38.0) 07/02/16 06:00 Sodium 142 mEq/L (136-145) 07/08/16 05:57 Potassium 3.9 mEq/L (3.5-5.1) 07/08/16 05:57 Chloride 116 mEq/L (98-107) H 07/08/16 05:57 Carbon Dioxide 25.1 mEq/L (21.0-31.0) 07/08/16 05:57 Anion Gap 4.8 (7.0-16.0) L 07/08/16 05:57 BUN 26 mg/dL (7-25) H 07/08/16 05:57 Creatinine 1.0 mg/dL (0.7-1.3) 07/08/16 05:57 Est GFR ( Amer) TNP 07/08/16 05:57 Est GFR (Non-Af Amer) TNP 07/08/16 05:57 BUN/Creatinine Ratio 26.0 07/08/16 05:57 Glucose 127 mg/dL (70-105) H 07/08/16 05:57 Whole Bld Lactic Acid 1.61 mmol/L (0.60-1.99) 07/04/16 08:50 Calcium 7.5 mg/dL (8.6-10.3) L 07/08/16 05:57 Magnesium 2.2 mg/dL (1.9-2.7) 07/06/16 06:06 Total Bilirubin 0.5 mg/dL (0.3-1.0) 07/04/16 08:50 AST 27 U/L (13-39) 07/04/16 08:50 ALT 15 U/L (7-52) 07/04/16 08:50 Alkaline Phosphatase 82 U/L (34-104) 07/04/16 08:50 C-Reactive Protein 8.9 mg/dL (0.0-0.9) H 07/05/16 06:16 Total Protein 4.9 gm/dL (6.0-8.3) L 07/04/16 08:50 Albumin 2.3 gm/dL (4.2-5.5) L 07/04/16 08:50 Globulin 2.6 gm/dL 07/04/16 08:50 Albumin/Globulin Ratio 0.9 (1.0-1.8) L 07/04/16 08:50 Prealbumin 7 mg/dL (9-32) L 07/02/16 06:00 Triglycerides 90 mg/dL (<150) 07/02/16 06:00 Cholesterol 103 mg/dL (<200) 07/02/16 06:00 LDL Cholesterol Direct 55 mg/dL (75-193) L 07/02/16 06:00 HDL Cholesterol 32 mg/dL (23-92) 07/02/16 06:00 TSH 2.42 uIU/ml (0.34-5.60) 07/02/16 06:00 Urine Source [place] 07/04/16 11:55 Urine Color YELLOW 07/04/16 11:55 Urine Clarity SL. CLOUDY (CLEAR) 07/04/16 11:55 Urine pH 6.5 07/04/16 11:55 Ur Specific [place] 1.025 (1.005-1.030) 07/04/16 11:55 Urine Protein 100 mg/dL (NEGATIVE) H 07/04/16 11:55 Urine Glucose (UA) NEGATIVE mg/dL (NEGATIVE) 07/04/16 11:55 Urine Ketones NEGATIVE mg/dL (NEGATIVE) 07/04/16 11:55 Urine Blood SMALL (NEGATIVE) H 07/04/16 11:55 Urine Nitrate NEGATIVE (NEGATIVE) 07/04/16 11:55 Urine Bilirubin SMALL (NEGATIVE) H 07/04/16 11:55 Urine Urobilinogen 0.2 E.U./dL (0.2 - 1.0) 07/04/16 11:55 Ur Leukocyte Esterase TRACE (NEGATIVE) H 07/04/16 11:55 Urine RBC 4-7 /hpf (0-5) 07/04/16 11:55 Urine WBC 6-10 /hpf (0-5) H 07/04/16 11:55 Ur Epithelial Cells OCCASIONAL /lpf (FEW) 07/04/16 11:55 Calcium Oxalate Crystal FEW /hpf 07/01/16 15:40 Urine Bacteria FEW /hpf (NONE SEEN) 07/04/16 11:55 Stool Leukocyte FEW WBC SEEN 07/07/16 05:15 Vancomycin Trough 12.2 ug/mL (10-20) 07/06/16 10:56 Random Vancomycin 7.8 ug/mL (5.0-40.0) 07/04/16 05:41 - Physical Exam Vitals and I&O: Vital Signs Temp 98.7 F 07/08/16 07:57 Pulse 90 07/08/16 08:29 Resp 18 07/08/16 08:18 BP 131/76 07/08/16 07:57 Pulse Ox 100 07/08/16 08:18 Intake & Output 07/07/16 07/08/16 07/08/16 18:59 06:59 18:59 Intake Total 1650 1220 Output Total 380 Balance 1270 1220 Intake: Intake, IV Amount 1200 200 Meropenem 1 gm In Sodium 100 100 Chloride 0.9% 100 ml @ 100 mls/hr IV Q12H [facility] Rx #:[id number] Sodium Chloride 0.45% 1, 1000 000 ml @ 75 mls/hr IV . [id number] [facility] Rx#:[id number] metroNIDAZOLE 500mg/NS 100 100 100mL 500 mg In 100 ml @ 100 mls/hr IV Q8HR [facility] Rx #:[id number] Tube Feeding 720 Other 450 300 Output: Urine 380 Other: # Voids 350 # Bowel Movements 1 Stool Characteristics Soft Soft Soft Formed Formed Formed Active Medications: Current Medications Acetaminophen (Tylenol) 650 mg PO Q6H PRN PRN Reason: MILD PAIN OR ELEVATED TEMP Last Admin: 07/07/16 20:52 Dose: 650 mg Albuterol/Ipratropium (Duoneb Neb) 3 ml HHN Q4H PRN PRN Reason: Wheezing Stop: 08/30/16 20:49 Last Admin: 07/08/16 08:15 Dose: 3 ml Amiodarone HCl (Cordarone) 200 mg PO DAILY [facility] Stop: 08/31/16 08:59 Last Admin: 07/08/16 08:29 Dose: 200 mg Bacitracin (Baciquent) 1 appl TP DAILY [facility] Stop: 08/31/16 08:59 Last Admin: 07/08/16 08:30 Dose: 1 appl Hydromorphone HCl (Dilaudid) 0.5 mg IVP Q4H PRN PRN Reason: Pain (Severe) Stop: 08/30/16 20:59 Last Admin: 07/08/16 03:24 Dose: 0.5 mg Sodium Chloride (Nacl 0.45%) 1,000 mls @ 75 mls/hr IV .[id number] [facility] Stop: 09/03/16 09:29 Last Admin: 07/07/16 23:02 Dose: 75 mls/hr Metronidazole (Flagyl) 500 mg in 100 mls @ 100 mls/hr IV Q8HR [facility] Stop: 09/03/16 20:59 Last Admin: 07/08/16 04:41 Dose: 100 mls/hr Meropenem 1 gm/ Sodium (Chloride) 100 mls @ 100 mls/hr IV Q12H [facility] Stop: 09/04/16 09:59 Last Admin: 07/08/16 09:25 Dose: 100 mls/hr Vancomycin HCl 1.25 gm/ Sodium (Chloride) 250 mls @ 165 mls/hr IV Q24H [facility] Stop: 09/04/16 12:59 Last Admin: 07/07/16 15:11 Dose: 165 mls/hr Miscellaneous (Vancomycin Iv Per Pharmacy) 1 ea MC DAILY [facility] Stop: 09/02/16 08:59 Rivaroxaban (Xarelto) 10 mg PO DAILY [facility] Stop: 08/31/16 08:59 Last Admin: 07/08/16 08:29 Dose: 10 mg Zolpidem Tartrate (Ambien) 10 mg GT HS PRN PRN Reason: Insomnia Stop: 09/01/16 09:53 Last Admin: 07/07/16 20:52 Dose: 10 mg - Procedures Procedures: Procedures Procedure Code Date EXCISION OF LEFT FOOT MUSCLE, OPEN APPROACH [id number] 07/01/16 EXCISION OF THORACIC VERTEBRA, OPEN APPROACH [id number] 07/01/16 REMOVAL OF PRESSURE SORE 42876 07/01/16 Assessment/Plan - Problem List Patient Problems: All Active Problems FAILURE TO THRIVE, G-TUBE EVAL (Acute) Nutritional Asmnt/Malnutr-PDOC - Dietary Evaluation Malnutrition Findings (Please click <Entered> for more info): Nutritional Asmnt/Malnutrition Start: 07/02/16 10: 46 Text: Status: Complete Freq: Document 07/02/16 10:46 GSUN (Rec: 07/02/16 11:13 GSLENA [id number]) Nutritional Asmnt/Malnutrition Patient General Information Nutritional Screening High Risk Screening Diagnosis ER: FTT, renal insufficiency dehydration, chronic decubitus ulcers mid back Pertinent Medical Hx/Surgical Hx ER: HTN, CAD, asthma/COPD, arthritis, dementia, BPH, chronic anemia Subjective Information 85 year old male from SNF. Per ER: poor PO and FTT, admitted for evaluation for g tube placement. 07/02 swallow eval: strict NPO, alternative methods of nutrition. Pt with eyes opened, did not make eye contact with RD, both hands with mittens on. Pt appeared thin overall, muscle/fat wasting to temporals, all 4 extremities, clavicles noted. 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 Estimated Nutritional Goals Calories/Kcals/Kg IBW 124lb/56.4kg Kcals Calculated 1410-1692kcal (25-30kcal/kg) Protein g/kg: IBW Protein Calculated 56-78g (1-1.4g/kg) Fluid: ml 1410-1692ml (1ml/kcal) Nutritional Problem 1. Problem Problem Difficulty swallowing related to Etiology failed swallow evaluation aeb Signs/Symptoms: ST recommend strict NPO, alternative methods of nutrition Intervention/Recommendation Comments 1. Recommend Fibersource at goal rate 50ml/hr x 24hrs, providing 1200ml total volume, 1440kcal, 65g protein, 940ml free water. Begin at 25ml/hr for first 24 hrs, monitor tolerance, increase rate by 10ml/hr q6hrs until goal rate of 50ml/hr. 2. Recommend 120ml water flush q6hrs if IV discontinued. Expected Outcomes/Goals Expected Outcomes/Goals 1. PT to meet 100% estimated nutritional needs on tube feeding with tolerance.
[2016-07-08] MEDS: Sodium Chloride 0.45% 1,000 ML IV SCH (17:17)
[2016-07-09] MEDS: HYDROmorphone 1 mg/mL 1mL Syr IVP PRN ×5 (01:45→20:45)
[2016-07-09 06:49] LABS: HEMATOCRIT 29.1 % (39.0-49.0); HEMOGLOBIN 9.7 gm/dL (12.6-17.4); MEAN CELL VOLUME 96.9 fl (80-99); MEAN CORPUSCULAR HEMOGLOBIN 32.2 pg (27.0-31.0); MEAN CORPUSCULAR HGB CONC 33.2 pg (28.0-36.0); MEAN PLATELET VOLUME 8.2 fl; PLATELET COUNT 271 Th/cmm (150-400); RED CELL DISTRIBUTION WIDTH 15.9 % (11.5-20.0)
[2016-07-09 06:50] LABS: ALB/GLOB RATIO 0.8 (1.0-1.8); ALKALINE PHOSPHATASE 71 U/L (34-104); ANION GAP 2.2 (7.0-16.0); BILIRUBIN,TOTAL 0.4 mg/dL (0.3-1.0); BUN - UREA NITROGEN 25 mg/dL (7-25); BUN/CREATININE RATIO 27.8; CALCIUM SERUM 7.5 mg/dL (8.6-10.3); CARBON DIOXIDE 24.9 mEq/L (21.0-31.0); CHLORIDE 118 mEq/L (98-107); CREATININE - SERUM 0.9 mg/dL (0.7-1.3); GLUCOSE 130 mg/dL (70-105); POTASSIUM SERUM 4.1 mEq/L (3.5-5.1); SGOT 24 U/L (13-39); SGPT/ALT 13 U/L (7-52); SODIUM SERUM 141 mEq/L (136-145)
[2016-07-09 06:54] LABS: WHITE BLOOD COUNT 13.8 Th/cmm (4.8-10.8)
[2016-07-09 09:19] LABS: BAND NEUTROPHILE 7 % (0-10); NEUTROPHILS 82 % (40-80); TOTAL CELLS COUNTED 100
[2016-07-09 09:20] LABS: ANISOCYTOSIS 1+; PLATELET ESTIMATE ADEQUATE (NORMAL); PLATELET MORPHOLOGY NORMAL (NORMAL)
--- NOTE | 2016-07-09 10:09 | Diagnostic Imaging Report ---
CHEST X-RAY: AP view INDICATION: Pneumonia, pleural effusion COMPARISON: 07/04/2016 FINDINGS: Exam is limited due to patient positioning and rotation is. Mild congestive changes are seen with hazy densities which may be due to small effusions. Atelectatic changes of the lungs are noted. No focal consolidation identified. Cardiomegaly is noted with atherosclerosis. IMPRESSION: Mild congestive changes with probable small effusions. No focal consolidation identified. Bibasal atelectatic changes. Cardiomegaly and atherosclerotic vascular disease.
[2016-07-09] MEDS: Meropenem 1 GM in Sodium Chloride 0.9% 100 ML IV SCH ×2 (10:12→22:10)
[2016-07-09] MEDS: Venelex 60gm Tube TP SCH (10:12)
[2016-07-09] MEDS: Albuterol/Ipratropium Neb 3 ML AERS HHN PRN (11:18)
--- NOTE | 2016-07-09 13:44 | Diagnostic Imaging Report ---
Nuclear medicine gallium scan History: Colitis Comparison: CT abdomen and pelvis on 07/07/2016 Technique/procedure: 5 mCi of Ga-67 citrate was administered intravenously and 24 hour delayed images were obtained. Findings: No significant focal colonic uptake is identified. There is faint uptake within the bone marrow. Faint uptake in the kidneys also noted. IMPRESSION: No significant focal colonic uptake identified. Please refer to recent CT examination for further results of findings suggestive of colitis.
--- NOTE | 2016-07-09 16:09 | General Progress Note ---
Subjective - Review of Systems Service Date: 07/09/16 Events since last encounter: Gallium scan negative Wbc almost normal abdomen is not tender Objective - Results Result Diagrams: 07/09/16 06:27 07/09/16 06:27 Recent Labs: Laboratory Last Values WBC 13.8 Th/cmm (4.8-10.8) H D 07/09/16 06:27 RBC 3.00 Mil/cmm (3.80-5.80) L 07/09/16 06:27 Hgb 9.7 gm/dL (12.6-17.4) L 07/09/16 06:27 Hct 29.1 % (39.0-49.0) L 07/09/16 06:27 MCV 96.9 fl (80-99) 07/09/16 06:27 MCH 32.2 pg (27.0-31.0) H 07/09/16 06:27 MCHC Differential 33.2 pg (28.0-36.0) 07/09/16 06:27 RDW 15.9 % (11.5-20.0) 07/09/16 06:27 Plt Count 271 Th/cmm (150-400) 07/09/16 06:27 MPV 8.2 fl 07/09/16 06:27 Band Neutrophils % 7 % (0-10) 07/09/16 06:27 Neutrophils (Manual) 82 % (40-80) H 07/09/16 06:27 Lymphocytes 5 % (20-50) L 07/09/16 06:27 Monocytes 6 % (2-10) 07/09/16 06:27 Eosinophils 3 % (0-5) 07/08/16 05:57 Metamyelocytes 1 % (0-0) H 07/04/16 05:41 Toxic Granulation 3+ 07/07/16 06:31 Platelet Estimate ADEQUATE (NORMAL) 07/09/16 06:27 Platelet Morphology NORMAL (NORMAL) 07/09/16 06:27 Anisocytosis 1+ 07/09/16 06:27 RBC Morph Micro Appear ABNORMAL (NORMAL) 07/09/16 06:27 ESR 20 mm/hr (0-20) 07/05/16 06:16 PT 12.5 SECONDS (9.5-11.5) H 07/03/16 06:29 INR 1.19 (0.5-1.4) 07/03/16 06:29 PTT (Actin FS) 31.5 SECONDS (26.0-38.0) 07/02/16 06:00 Sodium 141 mEq/L (136-145) 07/09/16 06:27 Potassium 4.1 mEq/L (3.5-5.1) 07/09/16 06:27 Chloride 118 mEq/L (98-107) H 07/09/16 06:27 Carbon Dioxide 24.9 mEq/L (21.0-31.0) 07/09/16 06:27 Anion Gap 2.2 (7.0-16.0) L 07/09/16 06:27 BUN 25 mg/dL (7-25) 07/09/16 06:27 Creatinine 0.9 mg/dL (0.7-1.3) 07/09/16 06:27 Est GFR ( Amer) TNP 07/09/16 06:27 Est GFR (Non-Af Amer) TNP 07/09/16 06:27 BUN/Creatinine Ratio 27.8 07/09/16 06:27 Glucose 130 mg/dL (70-105) H 07/09/16 06:27 Whole Bld Lactic Acid 1.61 mmol/L (0.60-1.99) 07/04/16 08:50 Calcium 7.5 mg/dL (8.6-10.3) L 07/09/16 06:27 Magnesium 2.2 mg/dL (1.9-2.7) 07/06/16 06:06 Total Bilirubin 0.4 mg/dL (0.3-1.0) 07/09/16 06:27 AST 24 U/L (13-39) 07/09/16 06:27 ALT 13 U/L (7-52) 07/09/16 06:27 Alkaline Phosphatase 71 U/L (34-104) 07/09/16 06:27 C-Reactive Protein 8.9 mg/dL (0.0-0.9) H 07/05/16 06:16 B-Natriuretic Peptide 98.0 pg/mL (5.0-100.0) 07/09/16 06:27 Total Protein 4.6 gm/dL (6.0-8.3) L 07/09/16 06:27 Albumin 2.0 gm/dL (4.2-5.5) L 07/09/16 06:27 Globulin 2.6 gm/dL 07/09/16 06:27 Albumin/Globulin Ratio 0.8 (1.0-1.8) L 07/09/16 06:27 Prealbumin 7 mg/dL (9-32) L 07/02/16 06:00 Triglycerides 90 mg/dL (<150) 07/02/16 06:00 Cholesterol 103 mg/dL (<200) 07/02/16 06:00 LDL Cholesterol Direct 55 mg/dL (75-193) L 07/02/16 06:00 HDL Cholesterol 32 mg/dL (23-92) 07/02/16 06:00 TSH 2.42 uIU/ml (0.34-5.60) 07/02/16 06:00 Urine Source [place] 07/04/16 11:55 Urine Color YELLOW 07/04/16 11:55 Urine Clarity SL. CLOUDY (CLEAR) 07/04/16 11:55 Urine pH 6.5 07/04/16 11:55 Ur Specific [place] 1.025 (1.005-1.030) 07/04/16 11:55 Urine Protein 100 mg/dL (NEGATIVE) H 07/04/16 11:55 Urine Glucose (UA) NEGATIVE mg/dL (NEGATIVE) 07/04/16 11:55 Urine Ketones NEGATIVE mg/dL (NEGATIVE) 07/04/16 11:55 Urine Blood SMALL (NEGATIVE) H 07/04/16 11:55 Urine Nitrate NEGATIVE (NEGATIVE) 07/04/16 11:55 Urine Bilirubin SMALL (NEGATIVE) H 07/04/16 11:55 Urine Urobilinogen 0.2 E.U./dL (0.2 - 1.0) 07/04/16 11:55 Ur Leukocyte Esterase TRACE (NEGATIVE) H 07/04/16 11:55 Urine RBC 4-7 /hpf (0-5) 07/04/16 11:55 Urine WBC 6-10 /hpf (0-5) H 07/04/16 11:55 Ur Epithelial Cells OCCASIONAL /lpf (FEW) 07/04/16 11:55 Calcium Oxalate Crystal FEW /hpf 07/01/16 15:40 Urine Bacteria FEW /hpf (NONE SEEN) 07/04/16 11:55 Stool Leukocyte FEW WBC SEEN 07/07/16 05:15 Vancomycin Trough 19.8 ug/mL (10-20) 07/08/16 12:00 Random Vancomycin 7.8 ug/mL (5.0-40.0) 07/04/16 05:41 - Physical Exam Vitals and I&O: Vital Signs Temp 97.6 F 07/09/16 08:52 Pulse 81 07/09/16 11:28 Resp 18 07/09/16 11:28 BP 122/60 07/09/16 08:52 Pulse Ox 98 07/09/16 11:28 Intake & Output 07/08/16 07/09/16 07/09/16 18:59 06:59 18:59 Intake Total 2258.333 900 Output Total 350 Balance 2258.333 550 Intake: Intake, IV Amount 1448.333 200 Meropenem 1 gm In Sodium 100 100 Chloride 0.9% 100 ml @ 100 mls/hr IV Q12H [facility] Rx #:[id number] Sodium Chloride 0.45% 1, 1000 000 ml @ 75 mls/hr IV . [id number] [facility] Rx#:[id number] Vancomycin HCl 1.25 gm In 250 Sodium Chloride 0.9% 250 ml @ 165 mls/hr IV Q24H [facility] Rx#:[id number] metroNIDAZOLE 500mg/NS 98.333 100 100mL 500 mg In 100 ml @ 100 mls/hr IV Q8HR [facility] Rx #:[id number] Tube Feeding 660 600 Other 150 100 Output: Urine 350 Other: # Voids 400 Stool Characteristics Soft Soft Soft Formed Formed Formed Active Medications: Current Medications Acetaminophen (Tylenol) 650 mg PO Q6H PRN PRN Reason: MILD PAIN OR ELEVATED TEMP Last Admin: 07/08/16 20:40 Dose: 650 mg Albuterol/Ipratropium (Duoneb Neb) 3 ml HHN Q4H PRN PRN Reason: Wheezing Stop: 08/30/16 20:49 Last Admin: 07/09/16 11:18 Dose: 3 ml Amiodarone HCl (Cordarone) 200 mg PO DAILY [facility] Stop: 08/31/16 08:59 Last Admin: 07/09/16 10:11 Dose: 200 mg Bacitracin (Baciquent) 1 appl TP DAILY [facility] Stop: 08/31/16 08:59 Last Admin: 07/09/16 10:11 Dose: 1 appl Hydromorphone HCl (Dilaudid) 0.5 mg IVP Q4H PRN PRN Reason: Pain (Severe) Stop: 08/30/16 20:59 Last Admin: 07/09/16 14:42 Dose: 0.5 mg Sodium Chloride (Nacl 0.45%) 1,000 mls @ 75 mls/hr IV .[id number] [facility] Stop: 09/03/16 09:29 Last Admin: 07/08/16 17:17 Dose: 75 mls/hr Meropenem 1 gm/ Sodium (Chloride) 100 mls @ 100 mls/hr IV Q12H [facility] Stop: 09/04/16 09:59 Last Admin: 07/09/16 10:12 Dose: 100 mls/hr Vancomycin HCl 1.25 gm/ Sodium (Chloride) 250 mls @ 165 mls/hr IV Q24H [facility] Stop: 09/04/16 12:59 Last Admin: 07/09/16 13:44 Dose: 165 mls/hr Miscellaneous (Vancomycin Iv Per Pharmacy) 1 ea MC DAILY [facility] Stop: 09/02/16 08:59 Rivaroxaban (Xarelto) 10 mg PO DAILY [facility] Stop: 08/31/16 08:59 Last Admin: 07/09/16 10:10 Dose: 10 mg Zolpidem Tartrate (Ambien) 10 mg GT HS PRN PRN Reason: Insomnia Stop: 09/01/16 09:53 Last Admin: 07/08/16 20:40 Dose: 10 mg - Procedures Procedures: Procedures Procedure Code Date EXCISION OF LEFT FOOT MUSCLE, OPEN APPROACH [id number] 07/01/16 EXCISION OF THORACIC VERTEBRA, OPEN APPROACH [id number] 07/01/16 REMOVAL OF PRESSURE SORE 58670 07/01/16 Assessment/Plan - Problem List Patient Problems: All Active Problems FAILURE TO THRIVE, G-TUBE EVAL (Acute) Nutritional Asmnt/Malnutr-PDOC - Dietary Evaluation Malnutrition Findings (Please click <Entered> for more info): Nutritional Asmnt/Malnutrition Start: 07/02/16 10: 46 Text: Status: Complete Freq: Document 07/02/16 10:46 GSUN (Rec: 07/02/16 11:13 GSLENA [email or web address]) Nutritional Asmnt/Malnutrition Patient General Information Nutritional Screening High Risk Screening Diagnosis ER: FTT, renal insufficiency dehydration, chronic decubitus ulcers mid back Pertinent Medical Hx/Surgical Hx ER: HTN, CAD, asthma/COPD, arthritis, dementia, BPH, chronic anemia Subjective Information 85 year old male from SNF. Per ER: poor PO and FTT, admitted for evaluation for g tube placement. 07/02 swallow eval: strict NPO, alternative methods of nutrition. Pt with eyes opened, did not make eye contact with RD, both hands with mittens on. Pt appeared thin overall, muscle/fat wasting to temporals, all 4 extremities, clavicles noted. 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 Estimated Nutritional Goals Calories/Kcals/Kg IBW 124lb/56.4kg Kcals Calculated 1410-1692kcal (25-30kcal/kg) Protein g/kg: IBW Protein Calculated 56-78g (1-1.4g/kg) Fluid: ml 1410-1692ml (1ml/kcal) Nutritional Problem 1. Problem Problem Difficulty swallowing related to Etiology failed swallow evaluation aeb Signs/Symptoms: ST recommend strict NPO, alternative methods of nutrition Intervention/Recommendation Comments 1. Recommend Fibersource at goal rate 50ml/hr x 24hrs, providing 1200ml total volume, 1440kcal, 65g protein, 940ml free water. Begin at 25ml/hr for first 24 hrs, monitor tolerance, increase rate by 10ml/hr q6hrs until goal rate of 50ml/hr. 2. Recommend 120ml water flush q6hrs if IV discontinued. Expected Outcomes/Goals Expected Outcomes/Goals 1. PT to meet 100% estimated nutritional needs on tube feeding with tolerance.
[2016-07-10] MEDS: HYDROmorphone 1 mg/mL 1mL Syr IVP PRN ×4 (00:59→21:01)
[2016-07-10] MEDS: Albuterol/Ipratropium Neb 3 ML AERS HHN PRN ×3 (01:08→11:48)
[2016-07-10 06:59] LABS: HEMATOCRIT 28.3 % (39.0-49.0); HEMOGLOBIN 9.5 gm/dL (12.6-17.4); MEAN CELL VOLUME 96.1 fl (80-99); MEAN CORPUSCULAR HEMOGLOBIN 32.2 pg (27.0-31.0); MEAN CORPUSCULAR HGB CONC 33.5 pg (28.0-36.0); MEAN PLATELET VOLUME 9.1 fl; PLATELET COUNT 302 Th/cmm (150-400); RED BLOOD COUNT 2.95 Mil/cmm (3.80-5.80); RED CELL DISTRIBUTION WIDTH 15.9 % (11.5-20.0); WHITE BLOOD COUNT 11.5 Th/cmm (4.8-10.8)
[2016-07-10 07:39] LABS: ANION GAP 6.5 (7.0-16.0); BUN - UREA NITROGEN 27 mg/dL (7-25); BUN/CREATININE RATIO 38.6; CALCIUM SERUM 7.9 mg/dL (8.6-10.3); CARBON DIOXIDE 25.6 mEq/L (21.0-31.0); CHLORIDE 115 mEq/L (98-107); CREATININE - SERUM 0.7 mg/dL (0.7-1.3); GLUCOSE 179 mg/dL (70-105); MAGNESIUM 2.5 mg/dL (1.9-2.7); POTASSIUM SERUM 5.1 mEq/L (3.5-5.1); SODIUM SERUM 142 mEq/L (136-145)
[2016-07-10 08:14] LABS: ANISOCYTOSIS 1+; BAND NEUTROPHILE 7 % (0-10); NEUTROPHILS 85 % (40-80); PLATELET ESTIMATE ADEQUATE (NORMAL); PLATELET MORPHOLOGY GIANT PLATELETS SEEN (NORMAL); TOTAL CELLS COUNTED 100
[2016-07-10] MEDS: Venelex 60gm Tube TP SCH (09:12)
[2016-07-10] MEDS: Meropenem 1 GM in Sodium Chloride 0.9% 100 ML IV SCH ×2 (11:41→21:01)
--- NOTE | 2016-07-10 12:14 | Infectious Disease Prog Note ---
Infectious Disease Subjective - Review of Systems Service Date: 07/10/16 Subjective: There is no fever. Infectious Disease Objective - Results Result Diagrams: 07/10/16 06:20 07/10/16 06:20 Recent Labs: Laboratory Last Values WBC 11.5 Th/cmm (4.8-10.8) H 07/10/16 06:20 RBC 2.95 Mil/cmm (3.80-5.80) L 07/10/16 06:20 Hgb 9.5 gm/dL (12.6-17.4) L 07/10/16 06:20 Hct 28.3 % (39.0-49.0) L 07/10/16 06:20 MCV 96.1 fl (80-99) 07/10/16 06:20 MCH 32.2 pg (27.0-31.0) H 07/10/16 06:20 MCHC Differential 33.5 pg (28.0-36.0) 07/10/16 06:20 RDW 15.9 % (11.5-20.0) 07/10/16 06:20 Plt Count 302 Th/cmm (150-400) 07/10/16 06:20 MPV 9.1 fl 07/10/16 06:20 Band Neutrophils % 7 % (0-10) 07/10/16 06:20 Neutrophils (Manual) 85 % (40-80) H 07/10/16 06:20 Lymphocytes 8 % (20-50) L 07/10/16 06:20 Monocytes 6 % (2-10) 07/09/16 06:27 Eosinophils 3 % (0-5) 07/08/16 05:57 Metamyelocytes 1 % (0-0) H 07/04/16 05:41 Toxic Granulation 3+ 07/07/16 06:31 Platelet Estimate ADEQUATE (NORMAL) 07/10/16 06:20 Platelet Morphology GIANT PLATELETS SEEN (NORMAL) 07/10/16 06:20 Anisocytosis 1+ 07/10/16 06:20 RBC Morph Micro Appear ABNORMAL (NORMAL) 07/10/16 06:20 ESR 20 mm/hr (0-20) 07/05/16 06:16 PT 12.5 SECONDS (9.5-11.5) H 07/03/16 06:29 INR 1.19 (0.5-1.4) 07/03/16 06:29 PTT (Actin FS) 31.5 SECONDS (26.0-38.0) 07/02/16 06:00 Sodium 142 mEq/L (136-145) 07/10/16 06:20 Potassium 5.1 mEq/L (3.5-5.1) 07/10/16 06:20 Chloride 115 mEq/L (98-107) H 07/10/16 06:20 Carbon Dioxide 25.6 mEq/L (21.0-31.0) 07/10/16 06:20 Anion Gap 6.5 (7.0-16.0) L 07/10/16 06:20 BUN 27 mg/dL (7-25) H 07/10/16 06:20 Creatinine 0.7 mg/dL (0.7-1.3) 07/10/16 06:20 Est GFR ( Amer) TNP 07/10/16 06:20 Est GFR (Non-Af Amer) TNP 07/10/16 06:20 BUN/Creatinine Ratio 38.6 07/10/16 06:20 Glucose 179 mg/dL (70-105) H 07/10/16 06:20 Whole Bld Lactic Acid 1.61 mmol/L (0.60-1.99) 07/04/16 08:50 Calcium 7.9 mg/dL (8.6-10.3) L 07/10/16 06:20 Magnesium 2.5 mg/dL (1.9-2.7) 07/10/16 06:20 Total Bilirubin 0.4 mg/dL (0.3-1.0) 07/09/16 06:27 AST 24 U/L (13-39) 07/09/16 06:27 ALT 13 U/L (7-52) 07/09/16 06:27 Alkaline Phosphatase 71 U/L (34-104) 07/09/16 06:27 C-Reactive Protein 8.9 mg/dL (0.0-0.9) H 07/05/16 06:16 B-Natriuretic Peptide 98.0 pg/mL (5.0-100.0) 07/09/16 06:27 Total Protein 4.6 gm/dL (6.0-8.3) L 07/09/16 06:27 Albumin 2.0 gm/dL (4.2-5.5) L 07/09/16 06:27 Globulin 2.6 gm/dL 07/09/16 06:27 Albumin/Globulin Ratio 0.8 (1.0-1.8) L 07/09/16 06:27 Prealbumin 7 mg/dL (9-32) L 07/02/16 06:00 Triglycerides 90 mg/dL (<150) 07/02/16 06:00 Cholesterol 103 mg/dL (<200) 07/02/16 06:00 LDL Cholesterol Direct 55 mg/dL (75-193) L 07/02/16 06:00 HDL Cholesterol 32 mg/dL (23-92) 07/02/16 06:00 TSH 2.42 uIU/ml (0.34-5.60) 07/02/16 06:00 Urine Source [place] 07/04/16 11:55 Urine Color YELLOW 07/04/16 11:55 Urine Clarity SL. CLOUDY (CLEAR) 07/04/16 11:55 Urine pH 6.5 07/04/16 11:55 Ur Specific [place] 1.025 (1.005-1.030) 07/04/16 11:55 Urine Protein 100 mg/dL (NEGATIVE) H 07/04/16 11:55 Urine Glucose (UA) NEGATIVE mg/dL (NEGATIVE) 07/04/16 11:55 Urine Ketones NEGATIVE mg/dL (NEGATIVE) 07/04/16 11:55 Urine Blood SMALL (NEGATIVE) H 07/04/16 11:55 Urine Nitrate NEGATIVE (NEGATIVE) 07/04/16 11:55 Urine Bilirubin SMALL (NEGATIVE) H 07/04/16 11:55 Urine Urobilinogen 0.2 E.U./dL (0.2 - 1.0) 07/04/16 11:55 Ur Leukocyte Esterase TRACE (NEGATIVE) H 07/04/16 11:55 Urine RBC 4-7 /hpf (0-5) 07/04/16 11:55 Urine WBC 6-10 /hpf (0-5) H 07/04/16 11:55 Ur Epithelial Cells OCCASIONAL /lpf (FEW) 07/04/16 11:55 Calcium Oxalate Crystal FEW /hpf 07/01/16 15:40 Urine Bacteria FEW /hpf (NONE SEEN) 07/04/16 11:55 Stool Leukocyte FEW WBC SEEN 07/07/16 05:15 Vancomycin Trough 19.8 ug/mL (10-20) 07/08/16 12:00 Random Vancomycin 7.8 ug/mL (5.0-40.0) 07/04/16 05:41 - Physical Exam Vitals and I&O: Vital Signs Temp 98.6 F 07/10/16 04:00 Pulse 80 07/10/16 09:09 Resp 21 07/10/16 04:00 BP 120/80 07/10/16 11:40 Pulse Ox 97 07/10/16 04:00 Intake & Output 07/09/16 07/10/16 07/10/16 18:59 06:59 18:59 Intake Total 350 1420 100 Output Total 800 Balance 350 620 100 Intake: Intake, IV Amount 350 100 Meropenem 1 gm In Sodium 100 100 Chloride 0.9% 100 ml @ 100 mls/hr IV Q12H [facility] Rx #:[id number] Vancomycin HCl 1.25 gm In 250 Sodium Chloride 0.9% 250 ml @ 165 mls/hr IV Q24H [facility] Rx#:[id number] Tube Feeding 1020 Other 400 Output: Urine 800 Other: # Bowel Movements 0 Stool Characteristics Soft Formed Active Medications: Current Medications Acetaminophen (Tylenol) 650 mg PO Q6H PRN PRN Reason: MILD PAIN OR ELEVATED TEMP Last Admin: 07/08/16 20:40 Dose: 650 mg Albuterol/Ipratropium (Duoneb Neb) 3 ml HHN Q4H PRN PRN Reason: Wheezing Stop: 08/30/16 20:49 Last Admin: 07/10/16 11:48 Dose: 3 ml Amiodarone HCl (Cordarone) 200 mg PO DAILY [facility] Stop: 08/31/16 08:59 Last Admin: 07/10/16 09:09 Dose: 200 mg Bacitracin (Baciquent) 1 appl TP DAILY [facility] Stop: 08/31/16 08:59 Last Admin: 07/10/16 09:12 Dose: 1 appl Hydromorphone HCl (Dilaudid) 0.5 mg IVP Q4H PRN PRN Reason: Pain (Severe) Stop: 08/30/16 20:59 Last Admin: 07/10/16 09:08 Dose: 0.5 mg Meropenem 1 gm/ Sodium (Chloride) 100 mls @ 100 mls/hr IV Q12H [facility] Stop: 09/04/16 09:59 Last Admin: 07/10/16 11:41 Dose: 100 mls/hr Vancomycin HCl 1.25 gm/ Sodium (Chloride) 250 mls @ 165 mls/hr IV Q24H [facility] Stop: 09/04/16 12:59 Last Infusion: 07/09/16 15:30 Dose: Infused Miscellaneous (Vancomycin Iv Per Pharmacy) 1 ea MC DAILY [facility] Stop: 09/02/16 08:59 Rivaroxaban (Xarelto) 10 mg PO DAILY [facility] Stop: 08/31/16 08:59 Last Admin: 07/10/16 09:09 Dose: 10 mg Zolpidem Tartrate (Ambien) 10 mg GT HS PRN PRN Reason: Insomnia Stop: 09/01/16 09:53 Last Admin: 07/09/16 22:10 Dose: 10 mg General: no acute distress, well developed, well nourished HEENT: atraumatic, normocephalic, PERRLA, EOMI, moist mucous membrane Neck: supple, no thyromegaly, no lymphadenopathy Cardiovascular: S1S2, regular Lungs: clear to auscultation bilaterally, clear to percussion Abdomen: soft, no tender, no distended Extremities: no cyanosis, no clubbing, no edema Neurological: awake, alert, oriented Skin: other (sacral wound.) - Procedures Procedures: Procedures Procedure Code Date EXCISION OF LEFT FOOT MUSCLE, OPEN APPROACH [id number] 07/01/16 EXCISION OF THORACIC VERTEBRA, OPEN APPROACH [id number] 07/01/16 REMOVAL OF PRESSURE SORE 16825 07/01/16 Infectious Disease Assmt/Plan - Problem List Patient Problems: All Active Problems FAILURE TO THRIVE, G-TUBE EVAL (Acute) - Assessment Assessment: 1. Leukocytosis has improved. 2. suspect pneumonia. 3. ILD/COPD/Asthma. 4. Dementia. 5. Sacral decubitus stage 4 infected. 6. Colitis? ischemic colitis, r/o CDAC. Pneumotosis coli. 7. Pneumonia, hazy multifocal infiltrate in Left lung. Recommendation: Will continue vanco and meropenem x 7 days. OK to dc to SNF. Nutritional Asmnt/Malnutr-PDOC - Dietary Evaluation Malnutrition Findings (Please click <Entered> for more info): Nutritional Asmnt/Malnutrition Start: 07/02/16 10: 46 Text: Status: Complete Freq: Document 07/02/16 10:46 DK (Rec: 07/02/16 11:13 DK [email or web address]) Nutritional Asmnt/Malnutrition Patient General Information Nutritional Screening High Risk Screening Diagnosis ER: FTT, renal insufficiency dehydration, chronic decubitus ulcers mid back Pertinent Medical Hx/Surgical Hx ER: HTN, CAD, asthma/COPD, arthritis, dementia, BPH, chronic anemia Subjective Information 85 year old male from SNF. Per ER: poor PO and FTT, admitted for evaluation for g tube placement. 07/02 swallow eval: strict NPO, alternative methods of nutrition. Pt with eyes opened, did not make eye contact with RD, both hands with mittens on. Pt appeared thin overall, muscle/fat wasting to temporals, all 4 extremities, clavicles noted. 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 Estimated Nutritional Goals Calories/Kcals/Kg IBW 124lb/56.4kg Kcals Calculated 1410-1692kcal (25-30kcal/kg) Protein g/kg: IBW Protein Calculated 56-78g (1-1.4g/kg) Fluid: ml 1410-1692ml (1ml/kcal) Nutritional Problem 1. Problem Problem Difficulty swallowing related to Etiology failed swallow evaluation aeb Signs/Symptoms: ST recommend strict NPO, alternative methods of nutrition Intervention/Recommendation Comments 1. Recommend Fibersource at goal rate 50ml/hr x 24hrs, providing 1200ml total volume, 1440kcal, 65g protein, 940ml free water. Begin at 25ml/hr for first 24 hrs, monitor tolerance, increase rate by 10ml/hr q6hrs until goal rate of 50ml/hr. 2. Recommend 120ml water flush q6hrs if IV discontinued. Expected Outcomes/Goals Expected Outcomes/Goals 1. PT to meet 100% estimated nutritional needs on tube feeding with tolerance.
[2016-07-11] MEDS: Albuterol/Ipratropium Neb 3 ML AERS HHN PRN ×5 (00:54→23:10)
[2016-07-11] MEDS: HYDROmorphone 1 mg/mL 1mL Syr IVP PRN ×3 (01:12→22:19)
[2016-07-11 07:04] LABS: HEMOGLOBIN 9.6 gm/dL (12.6-17.4); MEAN CELL VOLUME 95.4 fl (80-99); MEAN CORPUSCULAR HEMOGLOBIN 32.8 pg (27.0-31.0); MEAN CORPUSCULAR HGB CONC 34.3 pg (28.0-36.0); MEAN PLATELET VOLUME 8.9 fl; PLATELET COUNT 310 Th/cmm (150-400); RED BLOOD COUNT 2.93 Mil/cmm (3.80-5.80); RED CELL DISTRIBUTION WIDTH 16.2 % (11.5-20.0)
[2016-07-11 07:24] LABS: ANION GAP 5.7 (7.0-16.0); BUN - UREA NITROGEN 32 mg/dL (7-25); BUN/CREATININE RATIO 45.7; CALCIUM SERUM 7.9 mg/dL (8.6-10.3); CARBON DIOXIDE 26.9 mEq/L (21.0-31.0); CHLORIDE 114 mEq/L (98-107); CREATININE - SERUM 0.7 mg/dL (0.7-1.3); GLUCOSE 143 mg/dL (70-105); MAGNESIUM 2.5 mg/dL (1.9-2.7); POTASSIUM SERUM 4.6 mEq/L (3.5-5.1); SODIUM SERUM 142 mEq/L (136-145)
[2016-07-11] MEDS: Venelex 60gm Tube TP SCH (08:14)
[2016-07-11 08:52] LABS: BAND NEUTROPHILE 5 % (0-10); NEUTROPHILS 76 % (40-80); TOTAL CELLS COUNTED 100
[2016-07-11 08:53] LABS: ANISOCYTOSIS 1+; PLATELET ESTIMATE ADEQUATE (NORMAL); PLATELET MORPHOLOGY NORMAL (NORMAL)
[2016-07-11] MEDS: Meropenem 1 GM in Sodium Chloride 0.9% 100 ML IV SCH ×2 (10:30→21:37)
[2016-07-12 06:20] LABS: HEMATOCRIT 28.5 % (39.0-49.0); HEMOGLOBIN 9.6 gm/dL (12.6-17.4); MEAN CELL VOLUME 96.2 fl (80-99); MEAN CORPUSCULAR HEMOGLOBIN 32.5 pg (27.0-31.0); MEAN CORPUSCULAR HGB CONC 33.8 pg (28.0-36.0); MEAN PLATELET VOLUME 8.7 fl; PLATELET COUNT 314 Th/cmm (150-400); RED BLOOD COUNT 2.96 Mil/cmm (3.80-5.80); RED CELL DISTRIBUTION WIDTH 15.3 % (11.5-20.0)
[2016-07-12 06:44] LABS: ANION GAP 1.8 (7.0-16.0); BUN - UREA NITROGEN 27 mg/dL (7-25); BUN/CREATININE RATIO 38.6; CALCIUM SERUM 7.6 mg/dL (8.6-10.3); CARBON DIOXIDE 30.1 mEq/L (21.0-31.0); CHLORIDE 116 mEq/L (98-107); CREATININE - SERUM 0.7 mg/dL (0.7-1.3); GLUCOSE 100 mg/dL (70-105); POTASSIUM SERUM 4.9 mEq/L (3.5-5.1); SODIUM SERUM 143 mEq/L (136-145)
[2016-07-12 07:18] LABS: WHITE BLOOD COUNT 13.1 Th/cmm (4.8-10.8)
[2016-07-12] MEDS: Albuterol/Ipratropium Neb 3 ML AERS HHN PRN (07:34)
[2016-07-12 08:04] LABS: ANISOCYTOSIS 1+; EOSINOPHIL 1 % (0-5); NEUTROPHILS 81 % (40-80); PLATELET ESTIMATE ADEQUATE (NORMAL); TOTAL CELLS COUNTED 100
[2016-07-12] MEDS: Venelex 60gm Tube TP SCH (10:33)
[2016-07-12] MEDS: Meropenem 1 GM in Sodium Chloride 0.9% 100 ML IV SCH ×2 (12:26→21:22)
--- NOTE | 2016-07-12 14:03 | Infectious Disease Prog Note ---
Infectious Disease Subjective - Review of Systems Service Date: 07/12/16 Subjective: There is no fever. Infectious Disease Objective - Results Result Diagrams: 07/12/16 06:00 07/12/16 06:00 Recent Labs: Laboratory Last Values WBC 13.1 Th/cmm (4.8-10.8) H 07/12/16 06:00 RBC 2.96 Mil/cmm (3.80-5.80) L 07/12/16 06:00 Hgb 9.6 gm/dL (12.6-17.4) L 07/12/16 06:00 Hct 28.5 % (39.0-49.0) L 07/12/16 06:00 MCV 96.2 fl (80-99) 07/12/16 06:00 MCH 32.5 pg (27.0-31.0) H 07/12/16 06:00 MCHC Differential 33.8 pg (28.0-36.0) 07/12/16 06:00 RDW 15.3 % (11.5-20.0) 07/12/16 06:00 Plt Count 314 Th/cmm (150-400) 07/12/16 06:00 MPV 8.7 fl 07/12/16 06:00 Band Neutrophils % 5 % (0-10) 07/11/16 06:36 Neutrophils (Manual) 81 % (40-80) H 07/12/16 06:00 Lymphocytes 14 % (20-50) L 07/12/16 06:00 Monocytes 4 % (2-10) 07/12/16 06:00 Eosinophils 1 % (0-5) 07/12/16 06:00 Metamyelocytes 1 % (0-0) H 07/04/16 05:41 Toxic Granulation 3+ 07/07/16 06:31 Platelet Estimate ADEQUATE (NORMAL) 07/12/16 06:00 Platelet Morphology NORMAL (NORMAL) 07/11/16 06:36 Anisocytosis 1+ 07/12/16 06:00 RBC Morph Micro Appear ABNORMAL (NORMAL) 07/12/16 06:00 ESR 20 mm/hr (0-20) 07/05/16 06:16 PT 12.5 SECONDS (9.5-11.5) H 07/03/16 06:29 INR 1.19 (0.5-1.4) 07/03/16 06:29 PTT (Actin FS) 31.5 SECONDS (26.0-38.0) 07/02/16 06:00 Sodium 143 mEq/L (136-145) 07/12/16 06:00 Potassium 4.9 mEq/L (3.5-5.1) 07/12/16 06:00 Chloride 116 mEq/L (98-107) H 07/12/16 06:00 Carbon Dioxide 30.1 mEq/L (21.0-31.0) 07/12/16 06:00 Anion Gap 1.8 (7.0-16.0) L 07/12/16 06:00 BUN 27 mg/dL (7-25) H 07/12/16 06:00 Creatinine 0.7 mg/dL (0.7-1.3) 07/12/16 06:00 Est GFR ( Amer) TNP 07/12/16 06:00 Est GFR (Non-Af Amer) TNP 07/12/16 06:00 BUN/Creatinine Ratio 38.6 07/12/16 06:00 Glucose 100 mg/dL (70-105) 07/12/16 06:00 Whole Bld Lactic Acid 1.61 mmol/L (0.60-1.99) 07/04/16 08:50 Calcium 7.6 mg/dL (8.6-10.3) L 07/12/16 06:00 Magnesium 2.5 mg/dL (1.9-2.7) 07/11/16 06:36 Total Bilirubin 0.4 mg/dL (0.3-1.0) 07/09/16 06:27 AST 24 U/L (13-39) 07/09/16 06:27 ALT 13 U/L (7-52) 07/09/16 06:27 Alkaline Phosphatase 71 U/L (34-104) 07/09/16 06:27 C-Reactive Protein 8.9 mg/dL (0.0-0.9) H 07/05/16 06:16 B-Natriuretic Peptide 98.0 pg/mL (5.0-100.0) 07/09/16 06:27 Total Protein 4.6 gm/dL (6.0-8.3) L 07/09/16 06:27 Albumin 2.0 gm/dL (4.2-5.5) L 07/09/16 06:27 Globulin 2.6 gm/dL 07/09/16 06:27 Albumin/Globulin Ratio 0.8 (1.0-1.8) L 07/09/16 06:27 Prealbumin 7 mg/dL (9-32) L 07/02/16 06:00 Triglycerides 90 mg/dL (<150) 07/02/16 06:00 Cholesterol 103 mg/dL (<200) 07/02/16 06:00 LDL Cholesterol Direct 55 mg/dL (75-193) L 07/02/16 06:00 HDL Cholesterol 32 mg/dL (23-92) 07/02/16 06:00 TSH 2.42 uIU/ml (0.34-5.60) 07/02/16 06:00 Urine Source [place] 07/04/16 11:55 Urine Color YELLOW 07/04/16 11:55 Urine Clarity SL. CLOUDY (CLEAR) 07/04/16 11:55 Urine pH 6.5 07/04/16 11:55 Ur Specific [place] 1.025 (1.005-1.030) 07/04/16 11:55 Urine Protein 100 mg/dL (NEGATIVE) H 07/04/16 11:55 Urine Glucose (UA) NEGATIVE mg/dL (NEGATIVE) 07/04/16 11:55 Urine Ketones NEGATIVE mg/dL (NEGATIVE) 07/04/16 11:55 Urine Blood SMALL (NEGATIVE) H 07/04/16 11:55 Urine Nitrate NEGATIVE (NEGATIVE) 07/04/16 11:55 Urine Bilirubin SMALL (NEGATIVE) H 07/04/16 11:55 Urine Urobilinogen 0.2 E.U./dL (0.2 - 1.0) 07/04/16 11:55 Ur Leukocyte Esterase TRACE (NEGATIVE) H 07/04/16 11:55 Urine RBC 4-7 /hpf (0-5) 07/04/16 11:55 Urine WBC 6-10 /hpf (0-5) H 07/04/16 11:55 Ur Epithelial Cells OCCASIONAL /lpf (FEW) 07/04/16 11:55 Calcium Oxalate Crystal FEW /hpf 07/01/16 15:40 Urine Bacteria FEW /hpf (NONE SEEN) 07/04/16 11:55 Stool Leukocyte FEW WBC SEEN 07/07/16 05:15 Vancomycin Trough 19.2 ug/mL (10-20) 07/10/16 12:22 Random Vancomycin 7.8 ug/mL (5.0-40.0) 07/04/16 05:41 - Physical Exam Vitals and I&O: Vital Signs Temp 99.3 F 07/12/16 00:00 Pulse 77 07/12/16 10:32 Resp 17 07/12/16 08:00 BP 163/105 07/12/16 00:00 Pulse Ox 95 07/12/16 07:34 Intake & Output 07/11/16 07/12/16 07/12/16 18:59 06:59 18:59 Intake Total 350 400 750 Output Total 850 Balance 350 400 -100 Intake: Intake, IV Amount 350 100 Meropenem 1 gm In Sodium 100 100 Chloride 0.9% 100 ml @ 100 mls/hr IV Q12H [facility] Rx #:[id number] Vancomycin HCl 1.25 gm In 250 Sodium Chloride 0.9% 250 ml @ 165 mls/hr IV Q24H [facility] Rx#:[id number] Tube Feeding 300 750 Output: Urine 850 Other: Stool Characteristics Soft Soft Active Medications: Current Medications Acetaminophen (Tylenol) 650 mg PO Q6H PRN PRN Reason: MILD PAIN OR ELEVATED TEMP Last Admin: 07/08/16 20:40 Dose: 650 mg Albuterol/Ipratropium (Duoneb Neb) 3 ml HHN Q4H PRN PRN Reason: Wheezing Stop: 08/30/16 20:49 Last Admin: 07/12/16 07:34 Dose: 3 ml Amiodarone HCl (Cordarone) 200 mg PO DAILY [facility] Stop: 08/31/16 08:59 Last Admin: 07/12/16 10:32 Dose: 200 mg Bacitracin (Baciquent) 1 appl TP DAILY [facility] Stop: 08/31/16 08:59 Last Admin: 07/12/16 10:33 Dose: 1 appl Hydromorphone HCl (Dilaudid) 0.5 mg IVP Q4H PRN PRN Reason: Pain (Severe) Stop: 08/30/16 20:59 Last Admin: 07/11/16 22:19 Dose: 0.5 mg Meropenem 1 gm/ Sodium (Chloride) 100 mls @ 100 mls/hr IV Q12H [facility] Stop: 09/04/16 09:59 Last Admin: 07/12/16 12:26 Dose: 100 mls/hr Vancomycin HCl 1.25 gm/ Sodium (Chloride) 250 mls @ 165 mls/hr IV Q24H [facility] Stop: 09/04/16 12:59 Last Admin: 07/12/16 12:06 Dose: 100 mls/hr Miscellaneous (Vancomycin Iv Per Pharmacy) 1 ea MC DAILY [facility] Stop: 09/02/16 08:59 Rivaroxaban (Xarelto) 10 mg PO DAILY [facility] Stop: 08/31/16 08:59 Last Admin: 07/12/16 10:32 Dose: 10 mg Zolpidem Tartrate (Ambien) 10 mg GT HS PRN PRN Reason: Insomnia Stop: 09/01/16 09:53 Last Admin: 07/11/16 23:03 Dose: 10 mg General: no acute distress, cachectic HEENT: atraumatic, normocephalic, PERRLA, EOMI Neck: supple, no thyromegaly, no lymphadenopathy Cardiovascular: S1S2, regular Lungs: clear to auscultation bilaterally, clear to percussion Abdomen: soft, no tender, no distended Extremities: no cyanosis, no clubbing, no edema Neurological: awake, alert Skin: other (sacral wound) - Procedures Procedures: Procedures Procedure Code Date EXCISION OF LEFT FOOT MUSCLE, OPEN APPROACH [id number] 07/01/16 EXCISION OF THORACIC VERTEBRA, OPEN APPROACH [id number] 07/01/16 REMOVAL OF PRESSURE SORE 20402 07/01/16 Infectious Disease Assmt/Plan - Problem List Patient Problems: All Active Problems FAILURE TO THRIVE, G-TUBE EVAL (Acute) - Assessment Assessment: 1. Leukocytosis has improved. 2. suspect pneumonia. 3. ILD/COPD/Asthma. 4. Dementia. 5. Sacral decubitus stage 4 infected. 6. Colitis? ischemic colitis, r/o CDAC. Pneumotosis coli. 7. Pneumonia, hazy multifocal infiltrate in Left lung. Recommendation: Will continue vanco and meropenem x 5 days. OK to dc to SNF. Nutritional Asmnt/Malnutr-PDOC - Dietary Evaluation Malnutrition Findings (Please click <Entered> for more info): Nutritional Asmnt/Malnutrition Start: 07/02/16 10: 46 Text: Status: Complete Freq: Document 07/02/16 10:46 GSUN (Rec: 07/02/16 11:13 GSUN [email or web address]) Nutritional Asmnt/Malnutrition Patient General Information Nutritional Screening High Risk Screening Diagnosis ER: FTT, renal insufficiency dehydration, chronic decubitus ulcers mid back Pertinent Medical Hx/Surgical Hx ER: HTN, CAD, asthma/COPD, arthritis, dementia, BPH, chronic anemia Subjective Information 85 year old male from SNF. Per ER: poor PO and FTT, admitted for evaluation for g tube placement. 07/02 swallow eval: strict NPO, alternative methods of nutrition. Pt with eyes opened, did not make eye contact with RD, both hands with mittens on. Pt appeared thin overall, muscle/fat wasting to temporals, all 4 extremities, clavicles noted. 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 Estimated Nutritional Goals Calories/Kcals/Kg IBW 124lb/56.4kg Kcals Calculated 1410-1692kcal (25-30kcal/kg) Protein g/kg: IBW Protein Calculated 56-78g (1-1.4g/kg) Fluid: ml 1410-1692ml (1ml/kcal) Nutritional Problem 1. Problem Problem Difficulty swallowing related to Etiology failed swallow evaluation aeb Signs/Symptoms: ST recommend strict NPO, alternative methods of nutrition Intervention/Recommendation Comments 1. Recommend Fibersource at goal rate 50ml/hr x 24hrs, providing 1200ml total volume, 1440kcal, 65g protein, 940ml free water. Begin at 25ml/hr for first 24 hrs, monitor tolerance, increase rate by 10ml/hr q6hrs until goal rate of 50ml/hr. 2. Recommend 120ml water flush q6hrs if IV discontinued. Expected Outcomes/Goals Expected Outcomes/Goals 1. PT to meet 100% estimated nutritional needs on tube feeding with tolerance.
[2016-07-12] MEDS: HYDROmorphone 1 mg/mL 1mL Syr IVP PRN (14:25)
--- NOTE | 2016-07-12 21:32 | Discharge Summary ---
ADMITTING DIAGNOSES: Poor oral intake with failure to thrive, infected coccygeal decubitus ulcer, urinary tract infection, leukocytosis, hyponatremia, azotemia, malnourishment, left heel decubitus ulcer. SECONDARY DIAGNOSES: Includes history of advanced dementia, history of atrial fibrillation, history of chronic anemia, osteoarthritis, hypertension, history of coronary artery disease. DISCHARGE DIAGNOSES: 1. Failure to thrive with poor oral intake, status post percutaneous endoscopic gastrostomy placement. 2. Stage 4 decubitus ulcer with complex wound infection, status post debridement. 3. Leukocytosis. 4. Azotemia, improved. 5. Bilateral pneumonia/atelectasis. 6. Left heel decubitus ulcer. CONSULTANTS: GI, Dr. Hallman; ID, Dr. Lowell Guzman; and Dr. Garnett, General Surgery. MAJOR PROCEDURES: On 07/03/2016, the patient underwent excisional debridement of spine decubitus ulcer, which was staged at level 4; application of a wound VAC, excisional debridement of the left heel decubitus ulcer. On 07/03/2016, the patient had a PEG placement with no complications. On 07/05/2016, the patient underwent a bone scan showing increased activity on delayed images that appears to originate from the left hip region consistent with the patient's fracture and surgical changes. There are no abnormalities noted on the sacral area. There were sacral and coccygeal x-rays showing severe degenerative changes within the visualized lower lumbar spine. There were also atherosclerotic vascular changes and obvious destructive bony changes and mild displaced left intertrochanteric fracture with surgical changes. There is an abdominal CT done on 07/07/2016 showed generalized dilatation of the large bowel along with small bowel dilatation. There is criteria suggesting cholelithiasis. There is some anasarca. There are severe degenerative changes throughout the spine with compression involving several vertebrae and there is a gastrostomy tube in place and there is also CT of the chest done on 07/07/2016 showing very limited exam. There is moderate right and small left pleural effusion. There is parenchymal density in the right lower lobe consistent with atelectasis and/or consolidation. There are hazy multifocal infiltrates in the left lung. There is evidence of coronary artery and atherosclerotic vascular calcification. BRIEF HOSPITAL COURSE: An 85-year-old male who was brought in from custodial facility secondary to worsening p.o. intake and failure to thrive. He, as noted above, suffers from advanced dementia and apparently had also coccygeal and heel ulcer that were not healing. Pertinent findings on admission include a white count of 14.9 and BUN of 29 as well as a UA consistent with a UTI. The patient was placed on broad-spectrum antibiotics as well as IV fluids and was seen by GI for possible PEG placement. After discussing with family, the patient underwent PEG placement as well as a wound debridement. Wound cultures came back positive for E. coli as well as MRSA. His antibiotics were tailored to cover the above-mentioned agents and an ID eval also asked for further management and care. The patient overall has remained stable since he underwent the PEG and the wound debridement and his white count has gone down, although still is currently at a rate of 13.1. He has been given supportive care, daily wound care, and has been kept on his other medications as scheduled. CONDITION ON DISCHARGE: Stable. MEDICATIONS ON DISCHARGE: SEE MAR DISPOSITION: The patient will be discharged back to custodial facility with IV antibiotics and wound care. [facility]# [id number] [place]
[2016-07-13] MEDS: Meropenem 1 GM in Sodium Chloride 0.9% 100 ML IV SCH (09:28)
[2016-07-13] MEDS: Venelex 60gm Tube TP SCH (09:32)
== END 2016-07-13 13:45 | DRG 853 ==
LOC: ER 15:13 → TELE 20:30
PROVIDERS: ADMIT Internal Medicine; ATTEND Internal Medicine
PROC: 0KBW0ZZ Excision of Left Foot Muscle, Open Approach (ICD-10-PCS; principal; 2016-07-03)
PROC: 0PB40ZZ Excision of Thoracic Vertebra, Open Approach (ICD-10-PCS; 2016-07-03)
PROC: 0DH63UZ Insertion of Feeding Device into Stomach, Percutaneous Approach (ICD-10-PCS; 2016-07-03)
DX: A41.9 Sepsis, unspecified organism (principal); L89.623 Pressure ulcer of left heel, stage 3; J18.9 Pneumonia, unspecified organism; J90 Pleural effusion, not elsewhere classified; L89.154 Pressure ulcer of sacral region, stage 4; L89.894 Pressure ulcer of other site, stage 4; E44.0 Moderate protein-calorie malnutrition; N39.0 Urinary tract infection, site not specified; E87.1 Hypo-osmolality and hyponatremia; Z68.1 Body mass index [BMI] 19.9 or less, adult; F03.90 Unspecified dementia, unspecified severity, without behavioral disturbance, psychotic disturbance, mood disturbance, and anxiety; D63.1 Anemia in chronic kidney disease; E11.9 Type 2 diabetes mellitus without complications; R62.7 Adult failure to thrive; I10 Essential (primary) hypertension; I48.91 Unspecified atrial fibrillation; E86.0 Dehydration; J44.9 Chronic obstructive pulmonary disease, unspecified; M19.90 Unspecified osteoarthritis, unspecified site; I25.10 Atherosclerotic heart disease of native coronary artery without angina pectoris; N40.0 Benign prostatic hyperplasia without lower urinary tract symptoms; K80.20 Calculus of gallbladder without cholecystitis without obstruction
CPT/HCPCS: 36415-UA; 71010-TC; 71250-TC; 72220-TC; 78315-TC; 78804-TC; 80048-TC; 80053-TC; 80061-TC; 80202-TC; 81001-TC; 83605; 83735-TC; 83880-TC; 84134-90; 84443-TC; 85007-TC; 85027-TC; 85610-TC; 85652-TC; 86141-TC; 87070-90; 87086-90; 87230-TC; 88304-TC; 88305-90; 89055-TC; 90799; 93005; 94760; A9503; A9521; J0690; J0696; J1170; J1940; J2001; J2185; J2250; J2543; J2704; J2930; J3370; J3475; J3480; J7030; J7042; X3401; Z7506; Z7610